=== PATIENT | female | born 1955 | race Caucasian/White ===

== ENCOUNTER 2024-09-23 09:09 | Inpatient (IN) ==
--- NOTE | 2024-09-06 15:42 | PAT Medication Instructions ---
Medication Instructions Date of Service September 06, 2024 Home Medications biotin 1 mg capsule 1 mg PO QPM calcium 166.6 mg-vit D2 4.15 mcg-magnesium 83.3 mg-vit C-K2-min tablet 1 tab PO BID cholecalciferol (vitamin D3) 125 mcg (5,000 unit) capsule 125 mcg PO BID mirtazapine 15 mg tablet 15 mg PO HS mv-mn-folic 200 mcg-vit K 15 mcg-lutein 5 mg-zeaxanthin 1 mg capsule (PreserVision AREDS 2 Plus Multivit) 1 cap PO BID pantoprazole 40 mg tablet,delayed release 40 mg PO QAM duloxetine 30 mg capsule,delayed release 60 mg PO QAM famotidine 20 mg tablet 20 mg PO BID fexofenadine 180 mg tablet ([facility]) 180 mg PO HS PRN albuterol sulfate 90 mcg/actuation breath activated powder inhaler 2 inh inhalation Q6H PRN bupropion HCl 150 mg 24 hr tablet, extended release 150 mg PO QAM fluticasone 250 mcg-salmeterol 50 mcg/dose blistr powdr for inhalation 1 inh inhalation BID gabapentin 600 mg tablet 600 mg PO BID ibuprofen 200 mg capsule 800 mg PO DAILY PRN lisinopril 10 mg tablet 10 mg PO QAM montelukast 10 mg tablet 10 mg PO QPM Sleepy Time Tea 1 dose PO HS cefuroxime axetil 500 mg tablet 500 mg PO BID multivitamin 1 tab PO QAM ASK your surgeon for instructions ibuprofen 200 mg capsule 800 mg PO DAILY PRN STOP taking 2 weeks before surgery (or as soon as possible if surgery is within 2 weeks) biotin 1 mg capsule 1 mg PO QPM mv-mn-folic 200 mcg-vit K 15 mcg-lutein 5 mg-zeaxanthin 1 mg capsule (PreserVision AREDS 2 Plus Multivit) 1 cap PO BID DO NOT take the morning of surgery calcium 166.6 mg-vit D2 4.15 mcg-magnesium 83.3 mg-vit C-K2-min tablet 1 tab PO BID cholecalciferol (vitamin D3) 125 mcg (5,000 unit) capsule 125 mcg PO BID lisinopril 10 mg tablet 10 mg PO QAM multivitamin 1 tab PO QAM Take morning of surgery With a small sip of water, OTHERWISE NOTHING TO EAT OR DRINK AFTER MIDNIGHT: pantoprazole 40 mg tablet,delayed release 40 mg PO QAM duloxetine 30 mg capsule,delayed release 60 mg PO QAM famotidine 20 mg tablet 20 mg PO BID albuterol sulfate 90 mcg/actuation breath activated powder inhaler 2 inh inhalation Q6H PRN(use if needed; please bring with you to hospital day of surgery if possible) bupropion HCl 150 mg 24 hr tablet, extended release 150 mg PO QAM fluticasone 250 mcg-salmeterol 50 mcg/dose blistr powdr for inhalation 1 inh inhalation BID gabapentin 600 mg tablet 600 mg PO BID cefuroxime axetil 500 mg tablet 500 mg PO BID Take evening before surgery calcium 166.6 mg-vit D2 4.15 mcg-magnesium 83.3 mg-vit C-K2-min tablet 1 tab PO BID cholecalciferol (vitamin D3) 125 mcg (5,000 unit) capsule 125 mcg PO BID mirtazapine 15 mg tablet 15 mg PO HS famotidine 20 mg tablet 20 mg PO BID fexofenadine 180 mg tablet ([facility]) 180 mg PO HS PRN(if needed) albuterol sulfate 90 mcg/actuation breath activated powder inhaler 2 inh inhalation Q6H PRN(if needed) fluticasone 250 mcg-salmeterol 50 mcg/dose blistr powdr for inhalation 1 inh inhalation BID gabapentin 600 mg tablet 600 mg PO BID montelukast 10 mg tablet 10 mg PO QPM Sleepy Time Tea 1 dose PO HS cefuroxime axetil 500 mg tablet 500 mg PO BID Other Notes If you have any questions please call us at [phone] or [phone] or [phone] or [phone]
--- NOTE | 2024-09-09 11:55 | Anesthesiology Consultation ---
Date of Service September 09, 2024 Assessment & Plan (1) Encounter for pre-operative examination: - Infectious disease screening: Per assessment on 09/09/24- No known recent infectious disease contacts. Dx sinus infection 09/05/24- Started Ceftin at that time (10 day prescription, to be completed prior to surgery). Patient states symptoms resolved except post residual, improving post nasal drip/clear drainage. DOS 09/23/24. Patient advised to contact surgeon/PAT if not at baseline prior to surgery. - Awaiting surgeon-ordered PCP ([facility], appt 09/13) and cardio ([facility], appt 09/15) preop evaluations. Patient otherwise acceptable risk for surgery. Chart Review Chart Review: Patient seen in Pre Admission Testing Teaching & Discussion Pre-Anesthesia Teaching/Discussion Notes: Instructed NPO after midnight before surgery,except medications with 15 cc of water. Medication instructions provided according to the PAT guidelines. History Surgery Operation Date: 09/23/24 11:05 Proposed Procedures p L4-S1 Decompression and Fusion Spinal Cord Monitoring - [place] Packer, Height/Weight Height: 5 ft 5 in Weight: 113.8 kg Allergies Allergy/AdvReac Type Severity Reaction Status Date / Time aspirin Allergy Intermediate Abdominal Verified 09/06/24 11:52 Pain bee venom protein (honey bee) Allergy Intermediate swelling Verified 09/06/24 11:52 metoprolol Allergy Intermediate bradycardia, Verified 09/06/24 11:52 fatigue neomycin Allergy Mild Rash Verified 09/06/24 11:52 Penicillins Allergy Mild Rash Verified 09/06/24 11:52 rofecoxib Allergy Mild Rash Verified 09/06/24 11:52 Sulfa (Sulfonamide Allergy Mild Rash Verified 09/06/24 11:52 Antibiotics) aripiprazole AdvReac Severe severe Verified 09/06/24 11:52 nightmares Medications Home Medications Medication Instructions Recorded Confirmed Last Taken biotin 1 mg capsule 1 mg PO QPM 08/04/23 09/06/24 Unknown calcium 166.6 mg-vit D2 4.15 1 tab PO BID 08/04/23 09/06/24 Unknown mcg-magnesium 83.3 mg-vit C-K2-min tablet cholecalciferol (vitamin D3) 125 125 mcg PO BID 08/04/23 09/06/24 Unknown mcg (5,000 unit) capsule mirtazapine 15 mg tablet 15 mg PO HS 08/04/23 09/06/24 Unknown mv-mn-folic 200 mcg-vit K 15 1 cap PO BID 08/04/23 09/06/24 Unknown mcg-lutein 5 mg-zeaxanthin 1 mg capsule (PreserVision AREDS 2 Plus Multivit) pantoprazole 40 mg tablet,delayed 40 mg PO QAM 08/04/23 09/06/24 Unknown release duloxetine 30 mg capsule,delayed 60 mg PO QAM 09/29/23 09/06/24 Unknown release famotidine 20 mg tablet 20 mg PO BID 09/29/23 09/06/24 Unknown fexofenadine 180 mg tablet 180 mg PO HS PRN Allergy Symptoms 09/29/23 09/06/24 Unknown ([facility]) albuterol sulfate 90 mcg/actuation 2 inh inhalation Q6H PRN Shortness 04/27/24 09/06/24 Unknown breath activated powder inhaler Of Breath bupropion HCl 150 mg 24 hr tablet, 150 mg PO QAM 04/27/24 09/06/24 Unknown extended release fluticasone 250 mcg-salmeterol 50 1 inh inhalation BID 04/27/24 09/06/24 Unknown mcg/dose blistr powdr for inhalation gabapentin 600 mg tablet 600 mg PO BID 04/27/24 09/06/24 Unknown ibuprofen 200 mg capsule 800 mg PO DAILY PRN Pain 04/27/24 09/06/24 Unknown lisinopril 10 mg tablet 10 mg PO QAM 04/27/24 09/06/24 Unknown montelukast 10 mg tablet 10 mg PO QPM 04/27/24 09/06/24 Unknown Sleepy Time Tea 1 dose PO HS 09/06/24 09/06/24 Unknown cefuroxime axetil 500 mg tablet 500 mg PO BID 09/06/24 09/06/24 Unknown multivitamin 1 tab PO QAM 09/06/24 09/06/24 Unknown Past Medical History Medical History Chronic back pain Dyslipidemia GERD (gastroesophageal reflux disease) History of atrial fibrillation No known recurrence since ablation 2020 per patient Follows with [facility] cardio History of kidney stones HTN (hypertension) Macular degeneration of both eyes Osteoarthritis Post traumatic stress disorder Sleep apnea CPAP (compliant) Exercise / Class Metabolic Activity III < 4 Walking/Shop/Light housework (uses cane) Past Family History Family History Mother Heart disease Hyperlipemia Breast cancer Thyroid disease Father Prostate cancer Colorectal cancer Brother Prostate cancer Diabetes Hypertension Asthma Grandmother (Maternal) Stroke Other No family history of adverse response to anesthesia Past Surgical History Surgical History History of arthroscopy of right knee History of benign breast biopsy History of bilateral cataract extraction (2016) History of cardiac radiofrequency ablation (RFA) 2020 (in [place]) History of section x3 History of cholecystectomy History of colonoscopy History of dilatation and curettage History of esophagogastroduodenoscopy (EGD) History of gynecologic surgery Ectopic History of surgical procedure on eye proper using laser Left History of tooth extraction History of wisdom tooth extraction Past Anesthesia History No Family Hx of Anesthesia Complications and Other * Patient needed to remain intubated after surgery- unknown reason/details with 1980s surgery. No issues with several subsequent surgeries/anesthesia History of PONV No Hx of PONV and Hx of Motion Sickness Social History Smoking Status: Never smoker Do You Dip or Chew Tobacco: No Hx Alcohol Use: Yes (very rarely) alcohol intake frequency: holidays/special occasions only Hx Substance Use: Yes substance use type: marijuana (Marijuana gummies HS for sleep aid (advised)) Review of Systems Patient denies chest pain, shortness of breath, fever, chills, cough, wheezing, palpitations. Physical Exam Vital Signs BP 127/81 P 67 TEMP 98.4 SP02 97%RA RESP 20 Physical Full cervical extension range of motion. Full TMJ range of motion. TMD 3 finger breaths Mallampati Score III Dentition: missing molars/side, + crowns Lungs: clear throughout to auscultation Cardiac: regular rate and rhythm, no murmurs noted Spine: normal Carotid arteries: negative bruit Extremities: no LE edema Thick neck Lab Results Anesthesia Preop Results Results Anesthesia Widget: WBC 5.72 K/ul (4.8-10.8) 09/09/24 Hgb 12.0 g/dl (12.0-16.0) 09/09/24 Hct 37.1 % (37.0-47.0) 09/09/24 Plt 319 K/uL (130-400) 09/09/24 Na 142 mmol/L (136-145) 09/09/24 K 3.9 mmol/L (3.5-5.1) 09/09/24 Cl 110 mmol/L (98-107) H 09/09/24 CO2 26 mmol/L (21-32) 09/09/24 BUN 13 mg/dl (6-23) 09/09/24 Creat 0.84 mg/dl (0.6-1.2) 09/09/24 Glucose Level 97 mg/dl (70-99(Fasting)) 09/09/24 PT 10.6 Seconds (9.0-12.0) 09/09/24 PTT 26 Seconds (21-31) 09/09/24 INR 1.0 (0.9-1.1) 09/09/24 Urine Color Yellow 09/09/24 Urine Appearance Clear (Clear) 09/09/24 Urine pH 7.0 (4.5-7.5) 09/09/24 Urine Specific Jarratt 1.018 (1.000-1.030) 09/09/24 Urine Protein Negative (Negative) 09/09/24 Urine Glucose (UA) Negative (Negative) 09/09/24 Urine Ketones Trace (Negative) H 09/09/24 Urine Blood Negative (Negative) 09/09/24 Urine Nitrite Negative (Negative) 09/09/24 Urine Bilirubin Negative (Negative) 09/09/24 Urine Urobilinogen Negative (Negative) 09/09/24 Urine Leukocyte Esterase 1+ (Negative) H 09/09/24 Urine WBC (Auto) 0-5 /hpf (0-5) 09/09/24 Urine RBC (Auto) 0-2 /hpf (0-2) 09/09/24 Urine Hyaline Casts (Auto) 0-2 /lpf (0-2) 09/09/24 Urine Epithelial Cells (Auto) 6-10 /hpf (0-2) H 09/09/24 Urine Bacteria (Auto) None Seen (None Seen) 09/09/24 Blood Type A Positive 09/09/24 Antibody Screen NEGATIVE 09/09/24 Testing Electrocardiogram Date: 09/09/24 SB at 58bpm. LAD. Chest X-Ray Date: 09/09/24 FINDINGS: No lines and tubes are seen. Calcified aortic knob is seen. The lungs are clear. No evidence of pleural effusion or pneumothorax. IMPRESSION: No acute chest disease. Echocardiogram Date: 11/13/23 EF 55-60%. Mild concentric LVH. LV wall motion is normal. Mild MR/TR. RVSP 30-40 mmHg. Mildly dilated ascending aorta. Stress Test Date: 06/14/21 Type: exercise "This study is normal." Stress echocardiogram is normal. No regional wall motion abnormalities noted post stress. Negative ECG response. No clear increase in PA systolic pressure from.
[~2024-09-23 09:09] MED LIST: DEXAMETHASONE SOD INJ 4 MG/ML VIAL ONE; GLYCOPYRROLATE 0.2 MG/ML VIAL ONE; LIDOCAINE 2% 2 ML VIAL/AMP(20MG/ML) INFIL ONE; MIDAZOLAM HCL 1 MG/ML 2ML VIAL ONE; ONDANSETRON INJ 2 MG/ML 2 ML VIAL ONE; PROPOFOL IV EMULSION 10 MG/ML 20 ML VIAL IV ONE; ROCURONIUM BROMIDE 10 MG/ML 5 ML VIAL IV ONE; SUGAMMADEX SODIUM 200 MG/2 ML VIAL IV ONE; fentaNYL citrate PF 100 MCG/2 ML VIAL ONE
[2024-09-23] MEDS ORDERED: ONDANSETRON INJ 2 MG/ML 2 ML VIAL IV PRN ×2 (09:22→16:02)
[2024-09-23] MEDS ORDERED: ePHEDrine sulfate 50 MG/ML AMP IV PRN (09:22)
[2024-09-23] MEDS ORDERED: ATROPINE SULFATE 0.1 MG/ML 10ML SYR IV PRN (09:22)
[2024-09-23] MEDS ORDERED: DEXAMETHASONE SOD INJ 4 MG/ML VIAL IV PRN (09:22)
--- NOTE | 2024-09-23 09:25 | Anesthesiology Consultation ---
Date of Service September 23, 2024 Assessment & Plan Chart Review Chart Review: Acceptable Risk for Surgery Consults Requested none ASA [id number] Proposed Anesthesia Anesthesia Type: General History Surgery Operation Date: 09/23/24 10:45 Proposed Procedures p L4-S1 Decompression and Fusion, Spinal Cord Monitoring - [place] Packer DO Height/Weight Height: 5 ft 5 in Weight: 113.8 kg Allergies Allergy/AdvReac Type Severity Reaction Status Date / Time aspirin Allergy Intermediate Abdominal Verified 09/23/24 09:29 Pain bee venom protein (honey bee) Allergy Intermediate swelling Verified 09/23/24 09:29 metoprolol Allergy Intermediate bradycardia, Verified 09/23/24 09:29 fatigue neomycin Allergy Mild Rash Verified 09/23/24 09:29 Penicillins Allergy Mild Rash Verified 09/23/24 09:29 rofecoxib Allergy Mild Rash Verified 09/23/24 09:29 Sulfa (Sulfonamide Allergy Mild Rash Verified 09/23/24 09:29 Antibiotics) aripiprazole AdvReac Severe severe Verified 09/23/24 09:29 nightmares Medications Home Medications Medication Instructions Recorded Confirmed Last Taken biotin 1 mg capsule 1 mg PO QPM 08/04/23 09/23/24 2 Weeks Ago ~09/09/24 calcium 166.6 mg-vit D2 4.15 1 tab PO BID 08/04/23 09/23/24 09/22/24 mcg-magnesium 83.3 mg-vit C-K2-min tablet cholecalciferol (vitamin D3) 125 125 mcg PO BID 08/04/23 09/23/24 09/22/24 mcg (5,000 unit) capsule mirtazapine 15 mg tablet 15 mg PO HS 08/04/23 09/23/24 09/22/24 mv-mn-folic 200 mcg-vit K 15 1 cap PO BID 08/04/23 09/23/24 09/21/24 mcg-lutein 5 mg-zeaxanthin 1 mg capsule (PreserVision AREDS 2 Plus Multivit) pantoprazole 40 mg tablet,delayed 40 mg PO QAM 08/04/23 09/23/24 09/22/24 release duloxetine 30 mg capsule,delayed 60 mg PO QAM 09/29/23 09/23/24 09/22/24 release famotidine 20 mg tablet 20 mg PO BID 09/29/23 09/23/24 09/22/24 fexofenadine 180 mg tablet 180 mg PO HS PRN Allergy Symptoms 09/29/23 09/23/24 09/22/24 ([facility]) albuterol sulfate 90 mcg/actuation 2 inh inhalation Q6H PRN Shortness 04/27/24 09/23/24 09/23/24 08:00 breath activated powder inhaler Of Breath bupropion HCl 150 mg 24 hr tablet, 150 mg PO QAM 04/27/24 09/23/24 09/22/24 extended release fluticasone 250 mcg-salmeterol 50 1 inh inhalation BID 04/27/24 09/23/24 09/23/24 08:00 mcg/dose blistr powdr for inhalation gabapentin 600 mg tablet 600 mg PO BID 04/27/24 09/23/24 09/22/24 ibuprofen 200 mg capsule 800 mg PO DAILY PRN Pain 04/27/24 09/23/24 1 Week Ago ~09/16/24 lisinopril 10 mg tablet 10 mg PO QAM 04/27/24 09/23/24 09/22/24 montelukast 10 mg tablet 10 mg PO QPM 04/27/24 09/23/24 09/22/24 Sleepy Time Tea 1 dose PO HS 09/06/24 09/23/24 09/21/24 multivitamin 1 tab PO QAM 09/06/24 09/23/24 2 Weeks Ago ~09/09/24 Active Medications Generic Name Dose Route Start Last Admin Trade Name Freq PRN Reason Stop Dose Admin Acetaminophen 1,000 mg 09/23/24 06:00 09/23/24 09:56 Acetaminophen 500 Mg Tab PO 09/23/24 18:00 1,000 mg PREOP EM Administration Celecoxib 200 mg 09/23/24 06:00 09/23/24 09:56 Celebrex 200 Mg Cap PO 09/23/24 18:00 200 mg PREOP EM Administration Gabapentin 300 mg 09/23/24 06:00 09/23/24 09:58 Gabapentin 300 Mg Cap PO 09/23/24 18:00 300 mg PREOP EM Administration Lactated Ringer's 1,000 mls @ 60 mls/hr 09/23/24 06:00 09/23/24 09:39 Lr IV 09/23/24 22:39 Not Given .[id number] EM Lactated Ringer's 1,000 mls @ 15 mls/hr 09/23/24 06:00 09/23/24 09:40 Lr IV 09/24/24 05:59 0 mls/hr .Q24H EM Infusion NPO Last Intake of Solids Comment: NPO past MN Past Medical History Medical History HTN (hypertension) GERD (gastroesophageal reflux disease) Osteoarthritis Chronic back pain History of kidney stones Macular degeneration of both eyes Post traumatic stress disorder History of atrial fibrillation No known recurrence since ablation 2020 per patient Follows with [facility] Sleep apnea CPAP (compliant) Dyslipidemia Exercise / Class Metabolic Activity II 4-5 Yardwork/Stairs/Walk up hill Past Family History Family History Mother Heart disease Hyperlipemia Breast cancer Thyroid disease Father Prostate cancer Colorectal cancer Brother Prostate cancer Diabetes Hypertension Asthma Grandmother (Maternal) Stroke Other No family history of adverse response to anesthesia Past Surgical History Surgical History History of gynecologic surgery Ectopic History of section x3 History of benign breast biopsy History of dilatation and curettage History of arthroscopy of right knee History of esophagogastroduodenoscopy (EGD) History of colonoscopy History of cholecystectomy History of tooth extraction History of wisdom tooth extraction History of surgical procedure on eye proper using laser Left History of bilateral cataract extraction (2016) History of cardiac radiofrequency ablation (RFA) 2020 (in [place]) Past Anesthesia History No Hx of Anesthesia Complications * Patient needed to remain intubated after surgery- unknown reason/details with 1980s surgery. No issues with several subsequent surgeries/anesthesia History of PONV No Hx of PONV Social History Smoking Status: Never smoker Do You Dip or Chew Tobacco: No Hx Alcohol Use: Yes (very rarely) alcohol intake frequency: holidays/special occasions only Hx Substance Use: Yes substance use type: marijuana (Marijuana gummies HS for sleep aid (advised)) Review of Systems ROS Unobtainable: All systems reviewed & are unremarkable except as noted in HPI & below Physical Exam Vital Signs Last Vital Signs Temp 37.0 C 09/23/24 09:40 Pulse 64 09/23/24 09:40 Resp 18 09/23/24 09:40 BP 135/91 09/23/24 09:40 Pulse Ox 94 09/23/24 09:40 O2 Del Method Room Air 09/23/24 09:40 Constitutional no acute distress chronic back pain ENMT Thyromental Distance: > or= 3.5 Finger Breadths Mallampati Class: II Neck + thick neck Respiratory normal respiratory effort Auscultation: lungs clear to auscultation bilaterally Cardiovascular Rate/Rhythm: regular rate Neurologic moves all extremities Testing Electrocardiogram Date: 09/09/24 SB at 58bpm. LAD. Chest X-Ray Date: 09/09/24 FINDINGS: No lines and tubes are seen. Calcified aortic knob is seen. The lungs are clear. No evidence of pleural effusion or pneumothorax. IMPRESSION: No acute chest disease. Echocardiogram Date: 11/13/23 EF 55-60%. Mild concentric LVH. LV wall motion is normal. Mild MR/TR. RVSP 30-40 mmHg. Mildly dilated ascending aorta. Stress Test Date: 06/14/21 Type: exercise "This study is normal." Stress echocardiogram is normal. No regional wall motion abnormalities noted post stress. Negative ECG response. No clear increase in PA systolic pressure from.
[2024-09-23] MEDS: LR 60ML/HR IV SCH (09:39)
[2024-09-23] MEDS: LACTATED RINGER'S 1,000 ML IV SCH (09:39)
[2024-09-23] MEDS: ACETAMINOPHEN 500 MG TAB PO SCH (09:56)
[2024-09-23] MEDS: CeleBREX 200 MG CAP PO SCH (09:56)
[2024-09-23] MEDS: GABAPENTIN 300 MG CAP PO SCH (09:58)
--- NOTE | 2024-09-23 10:58 | History & Physical Bridge Note ---
Date of Service September 23, 2024 History & Physical Bridge Note I have examined the patient, reviewed the History & Physical and in the interval since the performance of the History & Physical I have noted the following changes of clinical significance: no changes noted
--- OUTSIDE RECORDS SUMMARY | 2024-09-23 10:58 | External Medical Summary | Summary of Care ---
Author Name Unknown Organization [facility] Address [address] [facility] [place] [address] Phone [phone] Care Team Providers Care Water Chemist Name Role Phone Eric Brooks DO Primary Care Provider [phone] Reason for Visit * Reason Comments Physical-Exam Pre-op for back Sep 23 Encounter Details Date Type Department Care Team (Latest Contact Info) Description 09/13/2024 1:40 PM EST Office Visit Family Practice [address] [facility] [place] [address] [place] [phone] Eric Brooks DO [address] [place] [id number] Preop examination*; Degeneration of intervertebral disc of lumbar region with discogenic back pain and lower extremity pain; Spinal stenosis of lumbar region with neurogenic claudication; HTN, goal below 140/90; Coronary artery disease involving kashia coronary artery of kashia heart without angina pectoris; Paroxysmal A-fib (HCC); ELLA on CPAP; Mild intermittent asthma without complication Allergies Active Allergy Reactions Criticality Noted Date Comments Aripiprazole 01/27/2022 Other reaction(s): Other (See Comments) orthostasis Aspirin Abdominal pain Medium 08/21/2021 The patient tolerates Toradol Bee Venom Hives 01/22/2016 Other reaction(s): unknown Gluten Meal 12/03/2017 Other reaction(s): gi distress Pregabalin Neuro complications (Please comment) 08/07/2023 nightmares Metoprolol Other (Please comment) Medium 12/08/2023 Drops heart rate Neomycin Rash 04/25/1999 Other reaction(s): Other Penicillins Rash 04/25/1999 Rofecoxib Rash Low 08/21/2021 The patient tolerates Toradol Sulfa Antibiotics 04/11/2003 documented as of this encounter (statuses as of 09/17/2024) Medications Cholecalciferol 125 MCG (5000 UT) Oral Capsule Take 1 Capsule by mouth in the morning. Active PreserVision AREDS 2+Multi Vit Oral Capsule Take 1 Capsule by mouth in the morning and 1 Capsule before bedtime. Active Calcium-Magnesium 166.67-83.33 MG Oral Tablet Take 1 Tablet by mouth in the morning and 1 Tablet before bedtime. Active CPAP 8 cm every night at bedtime. Active Famotidine 20 MG Oral Tablet (Pepcid)Indicatio ns:Gastroesophage al reflux disease with esophagitis without hemorrhage Take 1 Tablet by mouth in the morning and 1 Tablet before bedtime. 180 Tablet 3 05/02/2024 10:11 AM EDT 3 Active Fexofenadine HCl 180 MG Oral Tablet (Ariane) 1 Tablet every night at bedtime. 4 Active Womens Multi Oral Capsule Take by mouth daily. Active Montelukast Sodium 10 MG Oral Tablet (Singulair)Indica tions:Seasonal allergic rhinitis due to pollen,Mild intermittent asthma without complication Take 1 Tablet by mouth in the morning. 90 Tablet 3 09/08/2024 10:17 AM EST 4 Active Albuterol Sulfate HFA 108 (90 Base) MCG/ACT Inhalation Aerosol SolutionIndicatio ns:Mild intermittent asthma without complication Inhale 2 Puffs by mouth every 6 hours as needed for Cough, Shortness of Breath or Wheezing. 54 g 3 4 Active EpiPen 2-Victorino 0.3 MG/0.3ML Injection Solution Auto-injectorIndi cations:Angioedem a, initial encounter For a severe reaction: Place orange end against the outer thigh, press firmly, hold in place for 10 seconds and go to the Emergency room. 1 Each 2 01/18/2024 10:45 AM EDT 4 Active DULoxetine HCl 60 MG Oral Capsule Delayed Release Particles (Cymbalta)Indicat ions:Moderate episode of recurrent major depressive disorder (HCC) Take 1 Capsule by mouth in the morning 90 Capsule 3 08/16/2024 12:04 PM EST 4 Active Mirtazapine 15 MG Oral Tablet (Remeron)Indicati ons:Moderate episode of recurrent major depressive disorder (HCC) Take 1 Tablet by mouth at bedtime 90 Tablet 3 08/16/2024 12:04 PM EST 4 Active Pantoprazole Sodium 40 MG Oral Tablet Delayed Release (Protonix)Indicat ions:Gastroesopha geal reflux disease without esophagitis Take 1 Tablet by mouth in the morning. 90 Tablet 3 08/16/2024 12:04 PM EST 4 Active Lisinopril 10 MG Oral Tablet (Prinivil)Indicat ions:HTN, goal below 140/90 Take 1 Tablet by mouth in the morning. 90 Tablet 3 09/07/2024 8:16 AM EST 4 Active Fluticasone-Salme terol 250-50 MCG/ACT Inhalation Aerosol Powder Breath Activated (Advair Diskus)Indication s:Mild intermittent asthma, uncomplicated Inhale 1 Puff by mouth in the morning and 1 Puff before bedtime. 180 Each 3 09/14/2024 10:03 AM EST 4 Active buPROPion HCl ER (XL) 150 MG Oral Tablet Extended Release 24 Hour (Wellbutrin XL)Indications:Mo derate episode of recurrent major depressive disorder (HCC) Take 1 Tablet by mouth in the morning. 90 Tablet 3 07/13/2024 2:19 PM EDT 4 Active Gabapentin 600 MG Oral Tablet (Neurontin)Indica tions:Spinal stenosis of lumbar region with neurogenic claudication,Lumb ar radiculopathy, right Take 1 tablet by mouth twice daily 180 Tablet 3 06/24/2024 7:22 AM EDT 4 Active Sucralfate 1 GM Oral Tablet (Carafate)Indicat ions:Gastroesopha geal reflux disease without esophagitis Take 1 Tablet by mouth in the morning and 1 Tablet before bedtime. half an hour before meals and at bedtime. 120 Tablet 06/23/2024 10:55 AM EDT 4 Active Additional Information Patient not taking.Reported on 09/13/2024 Ezetimibe 10 MG Oral Tablet (Zetia)Indication s:Dyslipidemia, goal LDL below 70 Take 1 Tablet by mouth in the morning. 90 Tablet 3 07/28/2024 8:16 AM EDT 4 Active Cefuroxime Axetil 500 MG Oral Tablet (Ceftin)Indicatio ns:Acute non-recurrent maxillary sinusitis Take 1 Tablet by mouth in the morning and 1 Tablet before bedtime. 20 Tablet 4 Active Hospital, Clinic, or Other Facility Administered Medication Ordered Dose Route Frequency Start Date End Date Status Albuterol Sulfate (Proventil) (5 MG/ML) 0.5% *conc* inhalation solution 2.5 mgIndications:Wheezing 2.5 mg NEBULIZER PRN 06/07/2024 06/07/2025 Ac tive documented as of this encounter (statuses as of 09/17/2024) Active Problems Problem Noted Date Diagnosed Date Mastoiditis of left side 02/25/2024 Torticollis 02/25/2024 Tick bite of back wall of thorax 02/25/2024 DDD (degenerative disc disease), cervical 2023 HTN, goal below 140/90 02/17/2024 Dehydration 02/17/2024 Oropharyngeal candidiasis 02/17/2024 Fall at home, initial encounter 02/17/2024 Contusion of scalp 02/17/2024 Viral meningitis 02/15/2024 Bronchitis, complicated 02/15/2024 Elevated liver enzymes 02/15/2024 Lumbar radiculopathy, right 12/16/2023 Mild intermittent asthma, uncomplicated 11/18/19 24 Spinal stenosis of lumbar re gion with neurogenic claudication 11/18/2023 Claudication of right lower extremity 11/18/2023 Endometrial polyp 11/18/2023 Mild intermittent asthma without complication Status post laparoscopic cholecystectomy 023 Thickened endometrium 09/14/2023 Coronary artery disease invo lving kashia coronary artery of kashia heart without angina pectoris 08/07/2023 Sick sinus syndrome 08/07/2023 Dyslipidemia, goal LDL below 70 08/07/2023 Lumbar degenerative disc disease 08/07/2023 Primary osteoarthritis of both knees 08/07/2023 Gastroesophageal reflux dise ase with esophagitis without hemorrhage 08/07/2023 OAB (overactive bladder) 08/07/2023 Class 2 severe obesity due t o excess calories with serious comorbidity and body mass index (BMI) of 39.0 to 39.9 in adult 08/07/2023 Rotator cuff tendonitis, left 08/07/2023 Paroxysmal A-fib 01/20/2023 History of radiofrequency ab lation (RFA) procedure for cardiac arrhythmia 01/20/2023 Mixed dyslipidemia 01/20/2023 IFG (impaired fasting glucose) 01/20/2023 Gastroesophageal reflux disease without esophagi tis 01/20/2023 Vitamin D deficiency 01/20/2023 ELLA on CPAP 01/20/2023 Moderate episode of recurrent major depressive d isorder 01/20/2023 Chronic insomnia 01/20/2023 History of colonoscopy with polypectomy 01/21/20 23 Overview (01/20/2023): 09/18 Encounter for screening mammogram for breast can cer 01/20/2023 History of abnormal cervical Pap smear 3 Overview (01/20/2023): 2017--3 pap nml per pt Adhesive capsulitis of left shoulder 01/20/2023 documented as of this encounter (statuses as of 09/17/2024) Resolved Problems Problem Noted Date Diagnosed Date Resolved Date Acute calculous cholecystitis 08/10/2023 03/21/2024 Body mass index (BMI) of 40. 0 to 44.9 in adult 07/06/2023 08/07/2023 Overview: Per Obesity protocol Abnormal mammogram 05/04/2003 3 DIFFUS CYSTIC MASTOPATHY 05/04/2003 documented as of this encounter (statuses as of 09/17/2024) Immunizations Name Administration Dates Next Due COVID-19 mRNA, LNP-s, No Pre serve, 2-Dose Series (Moderna) 11/21/2020,10/24/2020 COVID-19 mRNA, LNP-s, No Pre serve, 2-Dose Series ([employer]) 08/06/2021 Pneumococcal Conjugate Vacc, 13 Valent (Prevnar) 06/08/2019 Pneumococcal Polysaccharide PPV23 (Pneumovax) 02/25/2022,11/20/2016 Seasonal Influenza Vac., MDV , IM, 0.5 mL (Fluzone) 08/02/2018,06/28/2015,07/11/2013,07/29 Seasonal Influenza, High Dos e, Trivalent, PF, IM (Fluzone HD) 06/23/2024,08/13/2022,07/20/2019 Seasonal Influenza, PF, 6 M & above, IM , (FluLaval or Fluzone) 08/02/2018 Seasonal Influenza, QUAD, wi th Preserv, 6 mons & Above, 0.5 mL, IM 08/02/2018,07/11/2013,07/29/2012 Seasonal Influenza, Quadriva lent Hd (Fluzone Hd) 07/07/2023 Seasonal Influenza, Recombin ant, RIV4, PF, (Flublock) 07/09/2020 TDAP (age 10 and older)(Boostrix) 11/18/2023 Zoster Vaccine Recombinant (Shingrix) 11/18/2023 ,08/07/2023 documented as of this encounter Social History Tobacco Use Types Packs/Day Years Used Date Smoking Tobacco: Never Smokeless Tobacco: Never Tobacco Cessation:Counseling Given: Yes Alcohol Use Standard Drinks/Week Comments Yes 0 (1 standard drink = 0.6 oz pur e alcohol) occ PHQ-2 Answer Date Recorded PHQ Adult Total Score 0 07/12/2024 Hunger Vital Sign Answer Date Recorded Within the past 12 months, y ou worried that your food would run out before you got the money to buy more. Never true 03/15/20 24 Within the past 12 months, t he food you bought just didn't last and you didn't have money to get more. Never true 03/15/2024 Childcare Answer Date Recorded Do you feel overwhelmed with taking care of a child, family member or friend? No 03/15/2024 Does your family need help f inding childcare? (Household - for ages 0-17 years) Not on file 03/15/2024 Clothing Answer Date Recorded Have you been unable to get clothing when it was really needed? No 03/15/2024 Is your family able to get c lothes or diapers when needed? (Household - for ages 0-17 years) Not on file 03/15/2024 Personal Safety Answer Date Recorded Do you feel unsafe or have concerns for your saf ety? No 03/15/2024 Do you have concerns for you r family's safety? (Household - for ages 0-17 years) Not on file 03/15/2024 Utilities Answer Date Recorded Do you have trouble paying y our heating, water, or electric bill? No 03/15/2024 Is your family able to pay t he heat, water, or electric bill? (Household - for ages 0-17 years) Not on file 03/15/2024 Does your family have access to good internet? (Household - for ages 0-17 years) Not on file 03/15/2024 Employment Status Answer Date Recorded Are you unemployed or without regular income? No 03/15/2024 Does the household have a re gular source of income? (Household - for ages 0-17 years) Not on file 03/15/2024 Social Connections Answer Date Recorded How often do you feel lonely or isolated from th ose around you? Never 03/15/2024 Financial Resource Strain Answer Date R ecorded Do you have any trouble payi ng for your medications, or do you think you might in the future? No 03/15/2024 Does your family have troubl e paying for medicine? (Household - for ages 0-17 years) Not on file 03/15/2024 Transportation Needs Answer Date Record ed READ ONLY Do you have troubl e getting a ride to medical visits or work? Never True 03/15/2024 Does your family have a hard time getting a ride to doctors visits? (Household - for ages 0-17 years) Not on file 03/15/2024 Has lack of transportation k ept you from medical appointments, meetings, work, or from getting things needed for daily living? Check all that apply. No 03/15/2024 Do you (or your family) have trouble finding or paying for a ride (transportation)? (Household - for ages 0-17 years) Not on file 03/15/2024 Housing Stability Answer Date Recorded Do you currently live in a s helter or have no steady place to sleep at night? No 03/15/2024 READ ONLY Do you think you a re at risk of becoming homeless? No 03/15/2024 Does your family worry about paying for your home or becoming homeless? (Household - for ages 0-17 years) Not on file 0 03/15/2024 Are you homeless or worried that you might be in the future? No 03/15/2024 Are you (or your family) devora eless or worried that you might be in the future? (Household - for ages 0-17 years) Not on file Food Insecurity Answer Date Recorded Do you need food for this week? No 03/15/2024 Are you able to get enough f ood for your family? (Household - for ages 0-17 years) Not on file 03/15/2024 Does your family need food t his week? (Household - for ages 0-17 years) Not on file 03/15/2024 Do you always have enough fo od for your family? 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 Answer Date of Assessment Author No 08/09/2023 10:34 PM EST Rachel Betts RN * Are you blind or do you have serious difficulty seeing, even when wearing glasses? Answer Date of Assessment Author No 08/09/2023 10:34 PM Rachel Das RN * Do you have serious difficulty walking or climbing stairs? (5 years old or older) Answer Date of Assessment Author No 08/09/2023 10:34 PM Rachel Das RN * Do you have difficulty dressing or bathing? (5 years old or older) Answer Date of Assessment Author No 08/09/2023 10:34 PM Rachel Das RN * Because of a physical, mental, or emotional condition, do you have difficulty doing errands alone such as visiting a doctors office or shopping? (15 years old or older) Answer Date of Assessment Author No 08/09/2023 10:34 PM Rachel Das RN documented as of this encounter Mental Status * Because of a physical, mental, or emotional condition, do you have serious difficulty concentrating, remembering, or making decisions? (5 years old or older) Answer Entry Date Author No 08/09/2023 10:34 PM Rachel Das RN documented in this encounter Progress Notes * Eric Brooks, - 09/13/2024 2:16 PM EST Images from the original note were not included. Pre-Operative Medical Evaluation Procedure Information Type of Surgery: lumbar decompression L4-5, L5-S1 Referring Physician / Surgeon: Dr. Packer Date of procedure: 09/23/24 Brief History of Present Illness: Patient is a 69-year-old female here for preop medical clearance. Patient has a history of hypertension, coronary disease, paroxysmal atrial fibrillation status post ablation, ELLA on CPAP, asthma, lumbar degenerative disc disease and lumbar spinal stenosis. Patient complains of chronic low back pain with pain radiating into right leg. Patient denies bowel or bladder dysfunction.Patient denies fati maurisio fever chills or sweats. Patient denies nasal congestion sore throat or earache. Patient denies cough or sputum. Patient is compliant with CPAP and is tolerating well. Patient denies chest pain shortness breath palpitations or edema. Patient denies abdominal pain nausea vomiting diarrhea constipation. Patient denies urinary frequency dysuria urgency or hematuria. Patient denies headache dizziness . Patient denies skin rash or lesions. Review systems otherwise negative Medical History Problem List: Mastoiditis of left side (02/25/2024) Torticollis (02/25/2024) Tick bite of back wall of thorax (02/25/2024) DDD (degenerative disc disease), cervical (02/18/2024) HTN, goal below 140/90 (02/17/2024) Dehydration (02/17/2024) Oropharyngeal candidiasis (02/17/2024) Fall at home, initial encounter (02/17/2024) Contusion of scalp (02/17/2024) Viral meningitis (02/15/2024) Bronchitis, complicated (02/15/2024) Elevated liver enzymes (02/15/2024) Lumbar radiculopathy, right (12/16/2023) Mild intermittent asthma, uncomplicated (11/18/2023) Spinal stenosis of lumbar region with neurogenic claudication (2023) Claudication of right lower extremity (HCC) (11/18/2023) Endometrial polyp (11/18/2023) Mild intermittent asthma without complication (10/12/2023) Status post laparoscopic cholecystectomy (09/14/2023) Thickened endometrium (09/14/2023) Acute calculous cholecystitis (08/10/2023) Coronary artery disease involving kashia coronary artery of kashia heart without angina pectoris (08/07/2023) Sick sinus syndrome (HCC) (08/07/2023) Dyslipidemia, goal LDL below 70 (08/07/2023) Lumbar degenerative disc disease (08/07/2023) Primary osteoarthritis of both knees (08/07/2023) Gastroesophageal reflux disease with esophagitis without hemorrhage (08/07/2023) OAB (overactive bladder) (08/07/2023) Class 2 severe obesity due to excess calories with serious comorbidity and body mass index (BMI) of 39.0 to 39.9 in adult ([facility]) (08/07/2023) Rotator cuff tendonitis, left (08/07/2023) Body mass index (BMI) of 40.0 to 44.9 in adult ([facility]) (07/06/2023) Paroxysmal A-fib ([facility]) (01/20/2023) History of radiofrequency ablation (RFA) procedure for cardiac arrhythmia (01/20/2023) Mixed dyslipidemia (01/20/2023) IFG (impaired fasting glucose) (01/20/2023) Gastroesophageal reflux disease without esophagitis (01/20/2023) Vitamin D deficiency (01/20/2023) ELLA on CPAP (01/20/2023) Moderate episode of recurrent major depressive disorder (HCC) (2022) Chronic insomnia (01/20/2023) History of colonoscopy with polypectomy (01/20/2023) Encounter for screening mammogram for breast cancer (01/20/2023) History of abnormal cervical Pap smear (01/20/2023) Adhesive capsulitis of left shoulder (01/20/2023) Abnormal mammogram (05/04/2003) DIFFUS CYSTIC MASTOPATHY (05/04/2003) Current Medications Cefuroxime Axetil 500 MG Oral Tablet (Ceftin), 500 mg, Oral, BID(AM/PM) Ezetimibe 10 MG Oral Tablet (Zetia), 10 mg, Oral, Daily(AM) Gabapentin 600 MG Oral Tablet (Neurontin), Take 1 tablet by mouth twice daily buPROPion HCl ER (XL) 150 MG Oral Tablet Extended Release 24 Hour (Wellbutrin XL), 150 mg, Oral, Daily(AM) Fluticasone-Salmeterol 250-50 MCG/ACT Inhalation Aerosol Powder Breath Activated (Advair Diskus), 1Puff, Inhalation, BID(AM/PM) Lisinopril 10 MG Oral Tablet (Prinivil), 10 mg, Oral, Daily(AM) DULoxetine HCl 60 MG Oral Capsule Delayed Release Particles (Cymbalta), 60 mg, Oral, Daily(AM) Mirtazapine 15 MG Oral Tablet (Remeron), 15 mg, Oral, HS Pantoprazole Sodium 40 MG Oral Tablet Delayed Release (Protonix), 40 mg, Oral, Daily(AM) Albuterol Sulfate HFA 108 (90 Base) MCG/ACT Inhalation Aerosol Solution, 2 Puff, Inhalation, Q6H PRN Montelukast Sodium 10 MG Oral Tablet (Singulair), 10 mg, Oral, Daily(AM) Fexofenadine HCl 180 MG Oral Tablet (Ariane), 180 mg, QHS Womens Multi Oral Capsule, Take by mouth daily. Famotidine 20 MG Oral Tablet (Pepcid), 20 mg, Oral, BID(AM/PM) CPAP, 8 cm, QHS Calcium-Magnesium 166.67-83.33 MG Oral Tablet, 1 Tablet, Oral, BID(AM/PM) Cholecalciferol 125 MCG (5000 UT) Oral Capsule, 5,000 Units, Oral, Daily(AM) PreserVision AREDS 2+Multi Vit Oral Capsule, 1 Capsule, Oral, BID(AM/PM) Sucralfate 1 GM Oral Tablet (Carafate), 1 g, Oral, BID(AM/PM) (Patient not taking: Reported on 09/13/2024) EpiPen 2-Victorino 0.3 MG/0.3ML Injection Solution Auto-injector, For a severe reaction: Place orange endagainst the outer thigh, press firmly, hold in place for 10 seconds and go to the Emergency room. Albuterol Sulfate (Proventil) (5 MG/ML) 0.5% *conc* inhalation solution 2.5 mg, 2.5 mg Allergies: Aspirin, Metoprolol, Aripiprazole, Bee venom, Gluten meal, Lyrica [pregabalin], Neomycin, Penicillins, Sulfa antibiotics, and Rofecoxib Past Medical History: has a past medical history of A-fib ([facility]), Acid reflux, Acute calculous cholecystitis (08/10/2023),Allergic disorder, Asthma, Congestive cardiac failure ([facility]), COVID-19 (10/12/2023), Dysfunction of eustachian tube (07/06/2007), Hyperlipidemia, INFORMATION (1995,1998), Insomnia, unspecified, Motionsickness, Obesity, BMI not known, ELLA on CPAP, Osteopenia after menopause (12/2020), and Otitis media (07/06/2007). Past Surgical History: has a past surgical history that includes treat ectopic /laparoscopy (09/28/1994); knee arthroscopy/meniscectomy (09/28/1995); dental surgery procedure nec (09/28/1976); delivery (82,83,88); MAMMOGRAM - BILATERAL; MAMMOGRAM - BILATERAL (11/13/2004); breast lesion,other,excision (Bilateral); laparoscopy; cholecystectomy (N/A, 08/10/2023); information (2021); information (Bilateral, 2015); Hysteroscopy w/Biopsy and/or Polypectomy w/wo D&C (N/A, 12/08/2023); Inject Dx/Ther Substance Interlaminar Lumbar/Sacral W Image Guide (N/A, 03/21/2024); Lumbar / Sacral Epidural, single level (Right, 05/19/2024); Lumbar / Sacral Epidural, add'l level (Right, 05/19/2024); and EGD, Flexible, Diagnostic (08/23/2024). Social History: reports that she has never smoked. She has never used smokeless tobacco. She reports current alcohol use. She reports current drug use. Drug: Marijuana. Family History: family history includes Allergies in her brother, daughter, and mother; Arthritis in her aunt (unspecified); Asthma in her brother; Breast Cancer (age of onset: 70) in her mother; Cancer in her uncle(unspecified); Cataracts in her father and mother; Colon cancer in her father; Crohn's disease in her daughter; Diabetes in her aunt (unspecified), brother, daughter, and daughter; Heart disease in her mother; Hyperlipidemia in her mother; Hypertension in her brother; Musculo-skeletal Disorder in her aunt (unspecified); Osteoporosis in her mother; Prostate cancer in her brother, brother, and father; Stroke in her grandmother (maternal) and uncle (unspecified); Thyroid Disorder in her aunt (unspecified) and mother. Anesthesia History Type of Anesthesia: General Endotracheal and Caudal block Anesthesia reaction: No History of surgical complications: none Personal history of venous thromboembolic disease: none Physical Exam Vitals: 09/13/24 1345 Temp: 97.5 F (36.4 C) Pulse: 66 SpO2: 96% BP: 118/70 BP 118/70 (BP Site: Left Arm, BP Position: Sitting, BP Cuff Size: Regular) | Pulse 66 | Temp 97.5 F (36.4 C) (Tympanic) | Wt 246 lb 9.6 oz (111.9 kg) | LMP 06/06/2004 | SpO2 96% | BMI 35.40 kg/m | BSA 2.35 m General: alert, healthy, and no distress Head: Normocephalic, No masses, lesions, tenderness or abnormalities Eye Exam: PERRLA, extraocular movements intact, conjunctiva are pink and non- injected, sclera clear Ears: External ears normal, Canals clear, TM's Normal Nose: no mucosal erythema, no mucosal edema, no purulent discharge Oropharynx: no exudate, no erythema, lips, buccal mucosa, and tongue normal, and mucous membranes are moist Neck: supple, no adenopathy, no bruits, thyroid normal size, non-tender, without nodularity Lymph: no palpable lymphadenopathy Heart: regular rate & rhythm, no murmur, and no gallops Lungs: chest symmetric with normal AP diameter, no chest deformities noted, no chest wall tenderness, lungs clear to auscultation Pulses: carotid=2/4 w/o bruits Abdomen: abdomen soft, non-tender, normal bowel sounds, and no masses or organomegaly Back: back symmetric, no curvature, no costovertebral angle tenderness, lumbar paravertebral musclespasm and tenderness decreased range of motion lumbar flexion L1-L5 Extremities: less than 2 second capillary refill, no joint deformities, effusion, or inflammation Neuro Exam: alert & oriented x 3 with fluent speech, no focal motor/sensory deficits, gait normal, decreased DTR 0/4 bilateral patella and Achilles Skin: skin color, texture, turgor are normal, no rashes or significant lesions Labs reviewed and are significant for: CBC, CMP, lipid panel EKG by my review is significant for: EKG on 08/09/2023 normal sinus rhythm, left axis deviation, Surgical Risk Scoring Revised Cardiac Risk Index (RCRI) High-risk type of surgery (examples include vascular and any open intraperitoneal or intrathoracic procedures): 0=No History of ischemic heart disease (history of myocardial infarction or positive exercise test, current compliant of chest pain considered to be secondary to myocardia ischemia, use of nitrate therapy, or ECG with pathological Q waves; do not count prior coronary revascularization procedure unless one of the other criteria for ischemic heart disease is present): 0=No History of heart failure: 0=No History of cerebrovascular disease: 0=No Diabetes mellitus requiring treatment with insulin: 0=No Preoperative serum creatinine >2.0 mg/dL (177 micromol/L): 0=No Pt has revised cardiac index score of: No Risk Factors- 0.4% (95% CI: 0.1-0.8) Screening for Obstructive Sleep Apnea (STOP-BANG) Do you Snore loudly? 0=No Do you often feel Tired, Fatigued, or Sleep? 0=No Has anyone Observed you Stop Breathing or Choking/Gasping during sleep? 1=Yes Do you have or are you being treated for High Blood Pressure? 1=Yes BMI over 35? 1=Yes Age older than 50? 1=Yes Neck size large? (For males - 17 inches or larger, For females - 16 inches or larger) 0=No Male? 0=No Score 0-2:low risk ELLA, 3-4: intermediate risk of ELLA, 5-8: high risk ELLA 4 Assessment and Plan Preop examination Patient medically stable for planned procedure Degeneration of intervertebral disc of lumbar region with discogenic back pain and lower extremity pain Follow with orthopedic spine surgeon Continue present medication Gabapentin 600 mg 1 tab twice daily Spinal stenosis of lumbar region with neurogenic claudication Follow with orthopedic spine surgeon Continue present medication Gabapentin 600 mg 1 tab twice daily HTN, goal below 140/90 Stable Blood pressure at goal. Continue present medication Lisinopril 10 mg 1 tab once daily Coronary artery disease involving kashia coronary artery of kashia heart without angina pectoris Stable Continue present medication Zetia 10 mg 1 tab once daily Lisinopril 10 mg 1 tab once daily Paroxysmal A-fib (HCC) Stable status post ablation ELLA on CPAP Stable Continue CPAP Mild intermittent asthma without complication Stable Continue present medication Advair 250-50 inhale 1 puff twice daily Albuterol HFA 2 puffs Q 4-6 hours p.r.n. Functional Assessment They are able to walk up a flight of stairs, walk two blocks at a moderate pace, do heavy house work like vacuuming, and grocery shop. The patient's functional status is adequate (equal to 4 METS). 1 MET: 4 METs: 4-10 METs: Can take care of self, such as eat, dress or use the toilet. Can walk to block or go up a flight of steps. Can do heavy house work. Surgical Risk Assessment Patient is low medical risk for the listed procedure. Medication adjustments: none Additional consults or testing: none * Sofía Mejía LPN - 09/13/2024 1:51 PM EST Patient has been verbally educated on the need or importance of COVID and has declined topic(s). documented in this encounter Plan of Treatment Upcoming Encounters Date Type Department Care Team (Late st Contact Info) Description 10/31/2024 1:40 PM EST Office Visit Family Practice [facility] [place] [address] [place] [id number] Eric Brooks DO [address] [place] [phone] 11/18/2024 10:30 AM EST Office Visit Ophthalmology, [place] [address] [phone] Glenn Barrett DO [address] [id number] Nurse Tre Ophthalmology [address] [phone] 12/12/2024 3:30 PM EDT Nutrition Services Nutrition Services [place] [address] [place] [phone] Zonia Ortiz RDN 30 [facility] [address] [place] [phone] 03/28/2025 9:20 AM EDT [facility] [address] [facility] [place] [phone] Cheli Ma MD [address] [place] [address] [place] [id number] 07/18/2025 8:00 AM EDT Nurse Only Elida Hillman [address] [place] [phone] Elida, Nurse Annual Wellness [address] [place] [phone] Health Maintenance Due Date Last Done Comments Cologuard 1999 Sigmoidoscopy 1999 Fecal Occult Blood Test 04/12/2002 04/12/2001 COVID-19 Vaccine ( season) 2024 08/06/2021, 11/21/2020, 10/24/2020 Mammogram 02/03/2025 02/04/2024, 12/28, 01/22/2023, Additional history exists Adult Wellness Visit 07/12/2025 07/12/2024, 06/24/20 23 Depression Monitoring 07/12/2025 07/12/2024 , 02/25/2024, 02/25/2024, Additional history exists GFR 07/22/2025 07/22/2024, 01/27, 02/12/2024, Additional history exists Albumin/Creatinine Ratio 02/24/2027 02/25/2024 Colonoscopy 09/03/2032 09/03/2022, 08/05/2019 Colorectal Cancer Screening 09/03/2032 DXA Scan 10/27/2033 10/27/2023, 01/02/2021 DTap/Tdap Vaccines (2 - Td or Tdap) 11/18/2033 11/18/2023, 07/29/1998 Pneumococcal Vaccine: 65+ Years Completed 02/25/2022, 06/08/2019, 11/20/2016 Zoster Vaccines Completed 11/18/2023, 08/07/2023 Hepatitis C Screening Completed 02/17/2024, 019 Influenza Vaccine (FLU shot) Completed , 07/07/2023, 08/13/2022, Additional history exists HPV (Gardasil) Vaccine Aged Out No lo nger eligible based on patient's age to complete this topic Hepatitis B Vaccine Aged Out No longe r eligible based on patient's age to complete this topic MENINGOCOCCAL (MENACTRA/MENVEO) Aged Out No longer eligible based on patient's age to complete this topic documented as of this encounter Medical Devices Not on filedocumented as of this encounter Visit Diagnoses Diagnosis Preop examination- Primary Preoperative examination, unspecified Degeneration of intervertebral disc of lumbar region with discogenic back pain and lower extremity pain Spinal stenosis of lumbar region with neurogenic claudication Spinal stenosis, lumbar region, with neurogenic claudication HTN, goal below 140/90 Unspecified essential hypertension Coronary artery disease involving kashia coronary artery of kashia heart without angina pectoris Paroxysmal A-fib (HCC) Atrial fibrillation ELLA on CPAP Obstructive sleep apnea (adult) (pediatric) Mild intermittent asthma without complication Unspecified asthma documented in this encounter Advance Directives Documents on File Type Date Recorded 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 Question Answer Comments Discussion of Advance Direct scooter occurred with: Not Discussed due to patient's condition * Full Code Date Activated Date Inactivated Comments 08/09/2023 9:40 PM 08/11/2023 9:05 PM This order reflects the patients wishes and were consensually agreed upon. Question Answer Comments Discussion of Advance Direct scooter occurred with: Not Discussed due to patient's condition Does the patient have a Living Will? No Does the patient have Health Care Power of Assistant Manager Bilingual? No Care Teams Water Chemist Relationship Specialty Start Date End Date Eric Brooks DO [address] [place] [id number] PCP - General Family Medicine 08/07/23 documented as of this encounter"
--- NOTE | 2024-09-23 10:59 | History & Physical Report ---
Date of Service September 23, 2024 Assessment & Plan (1) Lumbosacral spondylosis with radiculopathy: Plan: L4-S1 decompression and fusion History of Present Illness Chief Complaint: Back and leg pain Primary Care Provider: Eric Brooks DO This is a 69-year-old female who presents with chronic persistent back and leg pain after failing course of nonoperative care is here for surgical invention. Allergies Allergy/AdvReac Type Severity Reaction Status Date / Time aspirin Allergy Intermediate Abdominal Verified 09/23/24 09:29 Pain bee venom protein (honey bee) Allergy Intermediate swelling Verified 09/23/24 09:29 metoprolol Allergy Intermediate bradycardia, Verified 09/23/24 09:29 fatigue neomycin Allergy Mild Rash Verified 09/23/24 09:29 Penicillins Allergy Mild Rash Verified 09/23/24 09:29 rofecoxib Allergy Mild Rash Verified 09/23/24 09:29 Sulfa (Sulfonamide Allergy Mild Rash Verified 09/23/24 09:29 Antibiotics) aripiprazole AdvReac Severe severe Verified 09/23/24 09:29 nightmares Home Medications Medication Instructions Recorded Confirmed Type biotin 1 mg capsule 1 mg PO QPM 08/04/23 09/23/24 History calcium 166.6 mg-vit D2 4.15 1 tab PO BID 08/04/23 09/23/24 History mcg-magnesium 83.3 mg-vit C-K2-min tablet cholecalciferol (vitamin D3) 125 125 mcg PO BID 08/04/23 09/23/24 History mcg (5,000 unit) capsule mirtazapine 15 mg tablet 15 mg PO HS 08/04/23 09/23/24 History mv-mn-folic 200 mcg-vit K 15 1 cap PO BID 08/04/23 09/23/24 History mcg-lutein 5 mg-zeaxanthin 1 mg capsule (PreserVision AREDS 2 Plus Multivit) pantoprazole 40 mg tablet,delayed 40 mg PO QAM 08/04/23 09/23/24 History release duloxetine 30 mg capsule,delayed 60 mg PO QAM 09/29/23 09/23/24 History release famotidine 20 mg tablet 20 mg PO BID 09/29/23 09/23/24 History fexofenadine 180 mg tablet 180 mg PO HS PRN Allergy Symptoms 09/29/23 09/23/24 History (Ariane Allergy) albuterol sulfate 90 mcg/actuation 2 inh inhalation Q6H PRN Shortness 04/27/24 09/23/24 History breath activated powder inhaler Of Breath bupropion HCl 150 mg 24 hr tablet, 150 mg PO QAM 04/27/24 09/23/24 History extended release fluticasone 250 mcg-salmeterol 50 1 inh inhalation BID 04/27/24 09/23/24 History mcg/dose blistr powdr for inhalation gabapentin 600 mg tablet 600 mg PO BID 04/27/24 09/23/24 History ibuprofen 200 mg capsule 800 mg PO DAILY PRN Pain 04/27/24 09/23/24 History lisinopril 10 mg tablet 10 mg PO QAM 04/27/24 09/23/24 History montelukast 10 mg tablet 10 mg PO QPM 04/27/24 09/23/24 History Sleepy Time Tea 1 dose PO HS 09/06/24 09/23/24 History multivitamin 1 tab PO QAM 09/06/24 09/23/24 History Past Med/Surg History Problem List (Updated 09/23/24 @ 10:59 by Houston Packer DO) Lumbosacral spondylosis with radiculopathy Encounter for pre-operative examination Paresthesia of right lower extremity Lumbar radiculopathy Seasonal allergies Environmental allergies Major depressive disorder Vitamin D deficiency Medical History HTN (hypertension) GERD (gastroesophageal reflux disease) Osteoarthritis Chronic back pain History of kidney stones Macular degeneration of both eyes Post traumatic stress disorder History of atrial fibrillation No known recurrence since ablation 2020 per patient Follows with [facility] cardio Sleep apnea CPAP (compliant) Dyslipidemia Surgical History History of gynecologic surgery Ectopic History of section x3 History of benign breast biopsy History of dilatation and curettage History of arthroscopy of right knee History of esophagogastroduodenoscopy (EGD) History of colonoscopy History of cholecystectomy History of tooth extraction History of wisdom tooth extraction History of surgical procedure on eye proper using laser Left History of bilateral cataract extraction (2016) History of cardiac radiofrequency ablation (RFA) 2020 (in [place]) Family History Mother Heart disease Hyperlipemia Breast cancer Thyroid disease Father Prostate cancer Colorectal cancer Brother Prostate cancer Diabetes Hypertension Asthma Grandmother (Maternal) Stroke Other No family history of adverse response to anesthesia Social History Smoking Status: Never smoker Second Hand Exposure: No; Do You Dip or Chew Tobacco: No; Tobacco Cessation Education Requested by Patient: No Hx Alcohol Use: Yes (very rarely) Hx Substance Use: Yes Preferred Language: Moldovan Communication Ability: Effective Visual Impairment: No Limitations Hearing Ability: Normal Adjunct Psychology Professor Required: No Beliefs That Will Affect Care: None marital status: Current Living Situation: Alone 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
[2024-09-23] MEDS: CLINDAMYCIN/D5W 900 MG/50 ML BAG IV SCH (11:20)
[2024-09-23] MEDS: BUPIVACAINE/EPINEPHRINE 0.25% 1:200,000 30 ML VIAL ONE (11:51)
[2024-09-23] MEDS ORDERED: fentaNYL citrate PF 100 MCG/2 ML VIAL ONE (13:02)
[2024-09-23] MEDS: SURGICEL ABSORB HEMOSTAT 2IN X 14IN TOP ONE (13:13)
[2024-09-23] MEDS: FLOSEAL HEMOSTATIC MATRIX 10ML TOP ONE (13:29)
[2024-09-23] MEDS: ceFAZolin 330 MG/ML 1 GM VIAL ONE (13:29)
--- NOTE | 2024-09-23 13:53 | Operative Report ---
Post Operative Report Pre & Post Diagnosis Operation Date: 09/23/24 10:45 Pre-Op Diagnosis: #1 lumbar spondylosis with radiculopathy. #2 lumbar spinal stenosis with neurogenic claudication. #3 spondylolisthesis L4-L5.#4 morbid obesity Post-Op Diagnosis: Same I identified the patient and participated in the time-out.: Yes Procedure Operation Date: 09/23/24 10:45 Actual Procedures #1 lumbar decompression with bilateral medial facetectomies and foraminotomies L3-L4 L4-5 L5-S1. #2 posterior spinal fusion L4-L5 L5-S1. Posterior spinal fusion #3 posterior instrumentation L4-S1. #4 interbody fusion L4-L5 L5-S1. #5 placement of Spira 13 x 26 mm x 2 at L4-5 and 12 x 26 mm x 2 at L5-S1. #6 placement locally harvested morselized autograft posterior gutters. #7 placement is collagen sponge combined with Koros in the posterior lateral gutters and os design interbody space. #8 application of versa wrap of the exposed dura. Surgeon Houston Packer, DO Aviation Manager None Estimated Blood Loss 200 Findings See Below The patient is 5 foot 5 weighing over 113 kg with a BMI in excess of 41. Patient's body mass did contribute to significant technical difficulty with positioning exposure and the procedure itself and at least 50% increased operative time. Recommend a modifier 22. Specimens None Indications This is a 69-year-old female that presents publish diagnosis after failing course of nonoperative care is here for surgical invention. Description of Procedure Patient was met with identified informed consent obtained. Patient was then taken to the operative suite underwent intubation placed in a prone position on the Roman table atop the Robin frame. All bony promises well-padded eyes inspected to ensure no external pressure placed upon them. This point the lumbar spine was prepped and draped normal sterile fashion. Sharp dissection with the assistance of Bovie cautery performed down to and exposing the lamina transverse processes of L4-5 and the sacral ala bilaterally. From a caudal to cephalad fashion complete laminectomy of L5 was performed including bilateral medial facetectomies and foraminotomies addressing severe spinal stenosis. This was followed by complete laminectomy of L4 with bilateral medial facetectomies and foraminotomies addressing severe spinal stenosis and lastly partial laminectomy of L3 with bilateral medial facetectomies to address all subarticular disease. Pedicle screws were then placed in L4-L5 and S1 levels bilaterally with assistance of fluoroscopy and appropriate size lesa placed. By way of transforaminal approach on the left discectomy of L5-S1 was performed endplates guarded to subcortical bleeding bone and a 12 x 26 mm Spira cage filled with os design bone graft apposition. Then proceeded to the right transforaminal region L5-S1. Again discectomy performed endplates guarded to s ubcortical bleeding bone and a second 12 x 26 mm spiral cage filled with os designed tapped into position. Then proceeded L4-[address] of transfer approach on the right discectomy was performed endplates guarded to subcortical bleeding bone and a 13 x 26 mm spiral cage filled with os design tapped into position. Then proceeded to the left transforaminal region at L4-5. Again discectomy performed. Endplates guided to subcortical main bone and a second 13 x 26 mm Spira cage filled with Oxyzyme tapped in position. The rods were then compressed locked in final position bilaterally. The transverse processes of L4-L5 and the sacral ala burred to subcortical bleeding bone. Infuse collagen sponge, with Koros and local autograft placed in posterior gutters. Versa wrap placed over exposed dura. 15 round LACY drain inserted. The incision was then closed with 1 Vicryl fascia 2-0 Vicryl subcutaneously and 4 Monocryl for final closure. Steri-Strips and sterile dressing placed. Patient waken taken to PACU stable condition. Im ordering 20 grams of Triple [place] Collagen Powder ([id number]) to treat an incision wound that was caused by a spine procedure. The incision is approximately 2 cm(W) x 4 cm(L) into the joint (D) in size and is a full thickness wound. Triple [place] collagen comes in 1 gram packets so 20 packets were ordered. Given the size of the wound, with light to moderate exudate I chose to order a 20 day supply. The patient will be provided instructions for proper application of the collagen wound kit. The patient will be asked to apply the collagen powder daily and then cover it with sterile dressings dispensed. Collagen was selected as I expect the collagen to attract monocytes and fibroblasts, act as a sacrificial substrate for MMPs, and ultimately proved a matrix for tissue and vessel growth. The collagen will act as a primary dressing in this scenario. It is medically necessary for proper healing of these wounds to improve bioavailability and contact with each wound surface, this is also to help prevent infection of wounds and promote healing ultimately leading to a better healing outcome and limit the risk of infection. I attest to the content of the Intraoperative Record and any orders documented therein. Any exceptions are noted below.
[2024-09-23] MEDS: fentaNYL citrate PF 100 MCG/2 ML VIAL IV PRN (14:16)
[2024-09-23] MEDS: HYDROmorphone INJ 1 MG/ML SYRINGE IV PRN ×2 (14:35→20:05)
--- NOTE | 2024-09-23 14:44 | Anesthesiology Progress Note ---
Date of Service September 23, 2024 Anesthesia Post Procedure Vital Signs Vital Signs: Temp Pulse Resp BP Pulse Ox O2 Del Method O2 Flow Rate 09/23/24 14:30 63 15 140/80 99 Oxymask 5 09/23/24 14:20 66 15 131/88 97 Oxymask 5 09/23/24 14:10 68 18 136/81 94 Oxymask 5 09/23/24 14:03 37.0 C 70 16 161/93 H 94 Oxymask 5 09/23/24 09:40 Room Air 09/23/24 09:40 37.0 C 64 18 135/91 94 Room Air Transfer of Care Handoff Completed per policy Notes Mental Status: alert / awake / arousable Patient Amnestic to Procedure: Yes Nausea / Vomiting: adequately controlled Pain: adequately controlled Airway Patency, RR, SpO2: stable & adequate BP & HR: stable & adequate Hydration State: stable & adequate Anesthetic Complications: no major complications apparent and Pt Satisfied with anesthetic care Notes: Compa OLIVAREZ
--- NOTE | 2024-09-23 15:03 | Fluoroscopy Report ---
FL lumbar spine 2-3V CLINICAL HISTORY: L4-S1 DECOMPRESSION/FUSION TECHNIQUE: 2 views were obtained with the C-arm in the OR with the above procedure. Total fluoroscopy time was 24.9 seconds. Radiation dose was 24.5 mGy. Comparison: None available at the time of this dictation. FINDINGS/IMPRESSION: Intraoperative images were obtained of L4-S1 decompression and fusion. Please correlate with intraoperative fluoroscopy and operative report. ACT 112: Negative or not required by law. Electronically signed by: Evangelista Fontana M.D. 09/23/2024 3:01 PM
[2024-09-23] MEDS ORDERED: FEXOFENADINE HCL 180 MG TAB PO PRN (16:02)
[2024-09-23] MEDS ORDERED: LORazepam 2 MG/1 ML VIAL IV PRN (16:02)
[2024-09-23] MEDS ORDERED: HYDROmorphone INJ 0.5 MG/0.5 ML SYR IV PRN (16:02)
[2024-09-23] MEDS ORDERED: METOCLOPRAMIDE HCL INJ 5 MG/ML 2 ML VIAL IV PRN (16:02)
[2024-09-23] MEDS ORDERED: FAMOTIDINE 20 MG TAB PO PRN (16:02)
[2024-09-23] MEDS ORDERED: PROMETHAZINE 12.5 MG/50.5 ML BAG IV PRN (16:02)
[2024-09-23] MEDS ORDERED: LORazepam 0.5 MG TAB PO PRN (16:02)
[2024-09-23] MEDS ORDERED: hydrOXYzine HCl 25 MG TAB PO PRN (16:02)
[2024-09-23] MEDS ORDERED: ONDANSETRON 4 MG OD TAB PO PRN (16:02)
[2024-09-23] MEDS ORDERED: NALOXONE HCL 0.4 MG/1 ML VIAL/CARP IV PRN (16:02)
[2024-09-23] MEDS ORDERED: bisacodyL 10 MG SUPP PR PRN (16:02)
[2024-09-23] MEDS ORDERED: DO NOT ADMINISTER FLU VACCINE PRN (16:02)
[2024-09-23] MEDS ORDERED: KETOROLAC TROMETHAMINE 15 MG/ML VIAL IV PRN (16:02)
[2024-09-23] MEDS ORDERED: DO NOT ADMINISTER PNEUMOCOCCAL VACCINE PRN (16:02)
[2024-09-23] MEDS ORDERED: ALUMINUM/MAGNESIUM SUSP 30 ML UDC PO PRN (16:02)
[2024-09-23] MEDS ORDERED: ACETAMINOPHEN 1,000 MG/100 ML VIAL IV PRN (16:02)
[2024-09-23] MEDS ORDERED: diphenhydrAMINE Capsule 25 MG CAP PO PRN (16:02)
[2024-09-23] MEDS ORDERED: SOD PHOSPHATE/SOD BIPHOSPHATE ENEMA 132 ML BTL PR PRN (16:02)
[2024-09-23] MEDS ORDERED: ALBUTEROL HFA 8 GM INHALER INH PRN (16:11)
[2024-09-23] MEDS: traMADol HCL 50 MG TABLET PO PRN (16:17)
--- NOTE | 2024-09-23 17:50 | Hospitalist Consultation ---
Date of Consultation September 23, 2024 Assessment & Plan (1) Lumbosacral spondylosis with radiculopathy: (2) Lumbar radiculopathy: (3) History of atrial fibrillation: (4) HTN (hypertension): (5) Dyslipidemia: (6) Sleep apnea: (7) GERD (gastroesophageal reflux disease): Plan Status post lumbar decompression fusion - Pain management, bowel regimen and DVT ppx per the primary team - PT/OT consults, pt is planning on outpatient therapy - Follow am CBC to monitor for acute blood loss - gabapentin, History of paroxysmal atrial fibrillation -No recurrence since 2019, follows with [facility] cardiology as outpatient HTN HLD -Continue lisinopril 10 mg daily ELLA on CPAP -Continue at night, compliant -Continue Advair disc GERD -Continue Protonix and famotidine Morbid obesity -BMI 41.7, encourage diet and exercise DVT ppx: teds, scds Lines: PIV x 1 FEN/GI: Heart healthy CODE: Full code Dispo: From home, likely to remain in the hospital x 1-2 days Thank you for involving us in the care of Ms. Fleming. Please do not hesitate to call with questions or concerns. At this time medicine service will follow al fanny. A total of 40 minutes were spent with greater than 50% of that time face to face with the patient, personally reviewing all current laboratories, imaging studies, past medication reconciliation, outpatient chart review, and discussion with specialists to collaborate care for the patient with attending. Please see attending documentation for corrections and/or additions. Supervising Physician Co-Signing Physician Notes Attending Addendum: Case reviewed with the advanced practitioner. I have personally performed a history and physical examination on the patient. I have reviewed the advanced practitioner's documentation on the date of service referenced in note, and I agree with, and take responsibility for the plan of care. please refer to her notes for full details patient seen and examined, records reviewed by myself as well ASSESSMENT AND PLAN other diagnoses and plan of care as per advanced practitioner's notes Aki Melendez MD History of Present Illness Reason for Consultation: Medical management Requesting Physician: Dr. Packer Attending Physician: Houston Packer, DO History of Present Illness This is a 69-year-old female with PMHx of paroxysmal A-fib, CAD, sick sinus syndrome, HTN, HLD, morbid obesity BMI of 41, ELLA on CPAP, chronic insomnia, GERD, who presents to the hospital status post elective lumbar decompression fusion by Dr. Packer. She is doing well currently, reports pain is well controlled. She has tolerated feed without any difficulty. Patient has brought her CPAP machine with her and also has a TENS nerve stimulator with her at bedside and is asking questions about starting different modality tomorrow after spinal surgery. Last bowel movement was this morning. She denies any numbness or issues moving lower extremities. Burr catheter is still in place draining clear yellow urine. Allergies Allergy/AdvReac Type Severity Reaction Status Date / Time aspirin Allergy Intermediate Abdominal Verified 09/23/24 09:29 Pain bee venom protein (honey bee) Allergy Intermediate swelling Verified 09/23/24 09:29 metoprolol Allergy Intermediate bradycardia, Verified 09/23/24 09:29 fatigue neomycin Allergy Mild Rash Verified 09/23/24 09:29 Penicillins Allergy Mild Rash Verified 09/23/24 09:29 rofecoxib Allergy Mild Rash Verified 09/23/24 09:29 Sulfa (Sulfonamide Allergy Mild Rash Verified 09/23/24 09:29 Antibiotics) aripiprazole AdvReac Severe severe Verified 09/23/24 09:29 nightmares Home Medications Medication Instructions Recorded Confirmed Type biotin 1 mg capsule 1 mg PO QPM 08/04/23 09/23/24 History calcium 166.6 mg-vit D2 4.15 1 tab PO BID 08/04/23 09/23/24 History mcg-magnesium 83.3 mg-vit C-K2-min tablet cholecalciferol (vitamin D3) 125 125 mcg PO BID 08/04/23 09/23/24 History mcg (5,000 unit) capsule mirtazapine 15 mg tablet 15 mg PO HS 08/04/23 09/23/24 History mv-mn-folic 200 mcg-vit K 15 1 cap PO BID 08/04/23 09/23/24 History mcg-lutein 5 mg-zeaxanthin 1 mg capsule (PreserVision AREDS 2 Plus Multivit) pantoprazole 40 mg tablet,delayed 40 mg PO QAM 08/04/23 09/23/24 History release duloxetine 30 mg capsule,delayed 60 mg PO QAM 09/29/23 09/23/24 History release famotidine 20 mg tablet 20 mg PO BID 09/29/23 09/23/24 History fexofenadine 180 mg tablet 180 mg PO HS PRN Allergy Symptoms 09/29/23 09/23/24 History (Ariane Allergy) albuterol sulfate 90 mcg/actuation 2 inh inhalation Q6H PRN Shortness 04/27/24 09/23/24 History breath activated powder inhaler Of Breath bupropion HCl 150 mg 24 hr tablet, 150 mg PO QAM 04/27/24 09/23/24 History extended release fluticasone 250 mcg-salmeterol 50 1 inh inhalation BID 04/27/24 09/23/24 History mcg/dose blistr powdr for inhalation gabapentin 600 mg tablet 600 mg PO BID 04/27/24 09/23/24 History ibuprofen 200 mg capsule 800 mg PO DAILY PRN Pain 04/27/24 09/23/24 History lisinopril 10 mg tablet 10 mg PO QAM 04/27/24 09/23/24 History montelukast 10 mg tablet 10 mg PO QPM 04/27/24 09/23/24 History Sleepy Time Tea 1 dose PO HS 09/06/24 09/23/24 History multivitamin 1 tab PO QAM 09/06/24 09/23/24 History Patient History Medical History HTN (hypertension) GERD (gastroesophageal reflux disease) Osteoarthritis Chronic back pain History of kidney stones Macular degeneration of both eyes Post traumatic stress disorder History of atrial fibrillation No known recurrence since ablation 2020 per patient Follows with [facility] cardio Sleep apnea CPAP (compliant) Dyslipidemia Surgical History History of gynecologic surgery Ectopic History of section x3 History of benign breast biopsy History of dilatation and curettage History of arthroscopy of right knee History of esophagogastroduodenoscopy (EGD) History of colonoscopy History of cholecystectomy History of tooth extraction History of wisdom tooth extraction History of surgical procedure on eye proper using laser Left History of bilateral cataract extraction (2016) History of cardiac radiofrequency ablation (RFA) 2020 (in [place]) Family History Mother Heart disease Hyperlipemia Breast cancer Thyroid disease Father Prostate cancer Colorectal cancer Brother Prostate cancer Diabetes Hypertension Asthma Grandmother (Maternal) Stroke Other No family history of adverse response to anesthesia Social History Smoking Status: Never smoker Second Hand Exposure: No; Do You Dip or Chew Tobacco: No; Tobacco Cessation Education Requested by Patient: No Hx Alcohol Use: Yes (very rarely) Hx Substance Use: Yes Preferred Language: Maldivian Communication Ability: Effective Visual Impairment: No Limitations Hearing Ability: Normal Personal Care Aide Required: No Beliefs That Will Affect Care: None marital status: Current Living Situation: Alone 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 Other Information That Helps Us Care for You: No Feels Safe at Home: Yes Safety Concerns: Feels Safe At This Time Assistive Devices: CPAP and Glasses Assistive Devices Comment: reading glasses Review of Systems Review of Systems: Constitutional: No fever, sweats or chills Eyes: No diplopia, no worsening or blurred vision ENT: normal hearing, no trouble swallowing Respiratory: No cough, sputum, dyspnea at rest or on exertion Cardiovascular: No chest pain, tightness or palpitations Abdomen: No pain, nausea, vomiting, diarrhea or constipation Musculoskeletal: No joint pain, calf pain, swelling Neurologic: No weakness, numbness/tingling, or balance problems Psychiatric: No anxiety or depression Skin: No rash or itch Physical Exam Physical Exam: General: awake, alert, no apparent distress, obese white female Head: Normocephalic, atraumatic ENT: PERRL, EOMI, no pharyngeal exudate, mucous membranes moist Chest: Clear to auscultation, on room air, no adventitious breath sounds Cardiac: Regular rate and rhythm, no murmur, no JVD, normal peripheral pulses, good capillary refill Abdominal: NABS x 4 quadrants, soft, nondistended, nontender to palpation, no rebound or guarding Back: Dressing C/D/I, Chuck drain with serosanginous bloody outs : Burr catheter draining clear yellow urine Extremities: Normal inspection, no peripheral edema or erythema, calfs nontender to palpation Psych: Normal mood and affect Neuro: AAO x 3, strength intact bilaterally and rated 5/5, no motor deficits, speech is clear, no peripheral sensory deficits Results & Data Results & Data Vital Signs (Past 12 Hours) Vital Signs Temp Pulse Pulse Resp BP Pulse Ox O2 Del Method 09/23/24 16:32 36.4 C L 67 18 124/80 97 Nasal Cannula 09/23/24 16:02 36.7 C 73 18 133/87 95 Nasal Cannula 09/23/24 15:40 36.4 C L 61 16 130/74 97 Nasal Cannula 09/23/24 15:25 71 16 132/82 97 Nasal Cannula 09/23/24 15:10 62 16 125/78 97 Nasal Cannula 09/23/24 15:00 61 16 119/78 98 Nasal Cannula 09/23/24 14:50 36.4 C L 65 14 126/70 98 Nasal Cannula 09/23/24 14:40 62 13 146/88 H 97 Nasal Cannula 09/23/24 14:30 63 15 140/80 99 Oxymask 09/23/24 14:20 66 15 131/88 97 Oxymask 09/23/24 14:10 68 18 136/81 94 Oxymask 09/23/24 14:03 37.0 C 70 16 161/93 H 94 Oxymask 09/23/24 09:40 Room Air 09/23/24 09:40 37.0 C 64 18 135/91 94 Room Air O2 Flow Rate 09/23/24 16:32 2 09/23/24 16:02 2 09/23/24 15:40 2 09/23/24 15:25 2 09/23/24 15:10 2 09/23/24 15:00 2 09/23/24 14:50 4 09/23/24 14:40 4 09/23/24 14:30 5 09/23/24 14:20 5 09/23/24 14:10 5 09/23/24 14:03 5 09/23/24 09:40 09/23/24 09:40 Laboratory Results 09/23/24 09:28 Blood Type A Positive Antibody Screen NEGATIVE Crossmatch See Detail
[2024-09-23] MEDS: GABAPENTIN 600 MG TAB PO SCH (20:02)
[2024-09-23] MEDS: MIRTAZAPINE TAB 15 MG TAB PO SCH (20:02)
[2024-09-23] MEDS: MONTELUKAST SODIUM 10 MG TABLET PO SCH (20:02)
[2024-09-23] MEDS: CHOLECALCIFEROL 125 MCG (5,000 UNITS) TAB PO SCH (20:02)
[2024-09-23] MEDS: FAMOTIDINE 20 MG TAB PO SCH (20:02)
[2024-09-23] MEDS: DOCUSATE SODIUM/SENNA 50/8.6MG TAB PO SCH (20:02)
[2024-09-23] MEDS: CLINDAMYCIN/D5W 600 MG/50 ML BAG IV SCH (20:05)
[2024-09-23] MEDS ORDERED: [UNRECOGNIZED DRUG - OTHER] PO SCH (21:00)
[2024-09-24 06:00] LABS: Basophils # (auto) 0.03 K/uL (0.00-0.20); Basophils % (auto) 0.3 %; Hematocrit (blood only) 33.2 % (37.0-47.0); Hemoglobin 10.7 g/dl (12.0-16.0); Immature Granulocytes # (auto) 0.06 K/uL (0.01-0.20); Immature Granulocytes % (auto) 0.6 %; Lymphocytes % (auto) 10.4 %; Mean Corpuscular Hemoglobin 28.5 pg (25.0-34.0); Mean Corpuscular Hgb Conc 32.2 g/dL (32.0-36.0); Mean Corpuscular Volume 88.5 fL (80.0-100.0); Mean Platelet Volume 9.3 fL (9.4-12.4); Monocytes # (auto) 0.77 K/uL (0.11-0.59); Neutrophils # (auto) 7.79 K/uL (1.40-6.50); Neutrophils % (auto) 80.7 %; Platelet Count 303 K/uL (130-400); RDW Coefficient of Variation 13.9 % (11.5-14.5); RDW Standard Deviation 45.4 fL (36.4-46.3); Red Blood Count 3.75 M/uL (4.20-5.40); White Blood Count 9.65 K/ul (4.8-10.8)
[2024-09-24] MEDS: POLYETHYLENE (MIRALAX) 17 GM PACK PO SCH (06:05)
[2024-09-24 06:16] LABS: BUN Creatinine Ratio 22.5 (10-20); Calcium 8.9 mg/dl (8.6-10.3); Creatinine Clr Calc Pharmacy 82.3 ml/min; Potassium 4.2 mmol/L (3.5-5.1)
[2024-09-24] MEDS: PANTOprazole 40 MG TAB PO SCH (09:08)
[2024-09-24] MEDS: MULTIVITAMIN TAB PO SCH (09:08)
[2024-09-24] MEDS: CEROVITE ADV FORMULA TAB PO SCH (09:08)
[2024-09-24] MEDS: buPROPion XL 150 MG TABCR PO SCH (09:09)
[2024-09-24] MEDS: FLUTICASONE/VILANTEROL 200/25MCG 14 PUFFS/INHALER INH SCH (09:09)
[2024-09-24] MEDS: lisinopril 10 MG TAB PO SCH (09:09)
[2024-09-24] MEDS: DULoxetine HCL 60 MG CAP PO SCH (09:09)
[2024-09-24] MEDS: ACETAMINOPHEN 500 MG TAB PO PRN (09:13)
[2024-09-24] MEDS: oxyCODONE HCL IR 5 MG TAB (IMMEDIATE RELEASE) PO PRN (09:13)
--- NOTE | 2024-09-24 09:23 | Orthopedic Progress Note ---
Date of Service September 24, 2024 Assessment & Plan (1) Lumbosacral spondylosis with radiculopathy: Plan: At this point initiate physical therapy monitor LACY output anticipate discharge home in the next few days. Admission and Anticipated Discharge Date Admission Date: September 23, 2024 Subjective Patient's back pain is controlled. She has some numbness and tingling of the right foot. This was present preoperatively. She has not been out of bed yet. Physical Exam Physical Exam: On exam she is comfortable. Has good strength testing. Results & Data Vital Signs (Past 12 Hours) Vital Signs Temp Pulse Resp BP Pulse Ox O2 Del Method 09/24/24 07:39 36.4 C L 64 16 103/66 95 Room Air 09/24/24 03:24 36.5 C 62 15 91/53 L 94 Room Air 09/23/24 23:08 36.4 C L 62 16 115/63 90 Room Air Queries Orthopedic Spine Acute Posthemorrhagic Anemia: Yes Obesity: Yes
[2024-09-24] MEDS: dexAMETHasone 6 MG in SYRINGE 0 ML IV SCH (10:36)
[2024-09-24] MEDS: ACETAMINOPHEN 500 MG TAB PO SCH (11:01)
--- NOTE | 2024-09-24 15:07 | Hospitalist Progress Note ---
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 Packer. #Lumbar radiculopathy status post lumbar decompression fusion - Pain management, bowel regimen and DVT ppx per the primary team - PT/OT consults, pt is planning on outpatient therapy - Analgesia per primary #Acute blood loss anemia, s/p post-op losses - Follow am CBC -Monitor LACY drain op #paroxysmal atrial fibrillation -No recurrence since 2019, follows with [facility] cardiology as outpatient #HTN #HLD -Continue lisinopril 10 mg daily #ELLA on CPAP -Continue at night, compliant -Continue Advair disc #GERD -Continue Protonix and famotidine #Morbid obesity -BMI 41.7, encourage diet and exercise DVT ppx: teds, scds Lines: PIV x 1 FEN/GI: Heart healthy CODE: Full code Dispo: From home, likely to remain in the hospital x 1-2 days Thank you for involving us in the care of Ms. Fleming. Please do not hesitate to call with questions or concerns. At this time medicine service will follow along. Admission and Anticipated Discharge Date Admission Date: September 23, 2024 Subjective NAEO Reports RLE with worsening foot drop and numbness, but also notes these symptoms present prior to procedure Denies SOB, chest pain or other acute concerns Physical Exam Constitutional: WD/WN, vitals as above Respiratory: normal respiratory effort, lungs clear to auscultation Cardiovascular: RRR, no murmur, no edema Gastrointestinal (Abdomen): normal bowel sounds, soft, nontender, no hepatosplenomegaly Musculoskeletal: 4/5 dorsiflexion on RLE, 3/5 plantar fle xion RLE Results & Data Results & Data Vital Signs (Past 12 Hours) Vital Signs Temp Pulse Resp BP Pulse Ox O2 Del Method 09/24/24 12:07 36.5 C 75 18 117/73 94 Room Air 09/24/24 08:00 Room Air, CPAP 09/24/24 07:39 36.4 C L 64 16 103/66 95 Room Air 09/24/24 03:24 36.5 C 62 15 91/53 L 94 Room Air Laboratory Results Short CBC 09/24/24 Range/Units 05:37 WBC 9.65 (4.8-10.8) K/ul Hgb 10.7 L (12.0-16.0) g/dl Hct 33.2 L (37.0-47.0) % Plt Count 303 (130-400) K/uL BMP 09/24/24 05:37 Sodium 138 Potassium 4.2 Chloride 106 Carbon Dioxide 26 BUN 18 Creatinine 0.80 Glucose 117 H Calcium 8.9 Medications Administered Home Medications Medication Instructions Recorded Confirmed Last Taken biotin 1 mg capsule 1 mg PO QPM 08/04/23 09/23/24 2 Weeks Ago ~09/09/24 calcium 166.6 mg-vit D2 4.15 1 tab PO BID 08/04/23 09/23/24 09/22/24 mcg-magnesium 83.3 mg-vit C-K2-min tablet cholecalciferol (vitamin D3) 125 125 mcg PO BID 08/04/23 09/23/24 09/22/24 mcg (5,000 unit) capsule mirtazapine 15 mg tablet 15 mg PO HS 08/04/23 09/23/24 09/22/24 mv-mn-folic 200 mcg-vit K 15 1 cap PO BID 08/04/23 09/23/24 09/21/24 mcg-lutein 5 mg-zeaxanthin 1 mg capsule (PreserVision AREDS 2 Plus Multivit) pantoprazole 40 mg tablet,delayed 40 mg PO QAM 08/04/23 09/23/24 09/22/24 release duloxetine 30 mg capsule,delayed 60 mg PO QAM 09/29/23 09/23/24 09/22/24 release famotidine 20 mg tablet 20 mg PO BID 09/29/23 09/23/24 09/22/24 fexofenadine 180 mg tablet 180 mg PO HS PRN Allergy Symptoms 09/29/23 09/23/24 09/22/24 (Ariane Allergy) albuterol sulfate 90 mcg/actuation 2 inh inhalation Q6H PRN Shortness 04/27/24 09/23/24 09/23/24 08:00 breath activated powder inhaler Of Breath bupropion HCl 150 mg 24 hr tablet, 150 mg PO QAM 04/27/24 09/23/24 09/22/24 extended release fluticasone 250 mcg-salmeterol 50 1 inh inhalation BID 04/27/24 09/23/24 09/23/24 08:00 mcg/dose blistr powdr for inhalation gabapentin 600 mg tablet 600 mg PO BID 04/27/24 09/23/24 09/22/24 ibuprofen 200 mg capsule 800 mg PO DAILY PRN Pain 04/27/24 09/23/24 1 Week Ago ~09/16/24 lisinopril 10 mg tablet 10 mg PO QAM 04/27/24 09/23/24 09/22/24 montelukast 10 mg tablet 10 mg PO QPM 04/27/24 09/23/24 09/22/24 Sleepy Time Tea 1 dose PO HS 09/06/24 09/23/24 09/21/24 multivitamin 1 tab PO QAM 09/06/24 09/23/24 2 Weeks Ago ~09/09/24 oxycodone 5 mg tablet 5 mg PO Q6H PRN pain #30 tabs 09/24/24 Unknown tramadol 50 mg tablet 50 mg PO Q6H PRN pain, moderate 09/24/24 Unknown #30 tabs Active Medications Generic Name Dose Route Start Last Admin Trade Name Freq PRN Reason Stop Dose Admin Acetaminophen 1,000 mg 09/24/24 10:15 09/24/24 11:01 Acetaminophen 500 Mg Tab PO 10/24/24 10:14 Not Given Q8H EM Bupropion HCl 150 mg 09/24/24 09:00 09/24/24 09:09 Bupropion Xl 150 Mg Tabcr PO 10/24/24 08:59 150 mg QAM EM Administration Duloxetine HCl 60 mg 09/24/24 09:00 09/24/24 09:09 Duloxetine Hcl 60 Mg Cap PO 10/24/24 08:59 60 mg QAM EM Administration Famotidine 20 mg 09/23/24 21:00 09/24/24 09:08 Famotidine 20 Mg Tab PO 10/23/24 20:59 20 mg BID EM Administration Fluticasone/Vilanterol 1 puffs 09/24/24 09:00 09/24/24 09:09 Fluticasone/Vilanterol 200/25mcg 14 Puffs/Inhaler INH 10/24/24 08:59 1 puffs DAILY EM Administration Protocol Gabapentin 600 mg 09/23/24 21:00 09/24/24 09:09 Gabapentin 600 Mg Tab PO 10/23/24 20:59 600 mg BID EM Administration Hydromorphone HCl 1 mg 09/23/24 16:02 09/23/24 20:05 Hydromorphone Inj 1 Mg/Ml Syringe IV 10/07/24 16:01 1 mg Q3H PRN Administration SEVERE Pain (Scale 7,8,9,10) Dexamethasone 6 mg/ Syringe 1.5 mls @ 1 mls/min 09/24/24 09:00 09/24/24 10:36 IV 09/26/24 09:02 1 mls/min DAILY EM Administration Lisinopril 10 mg 09/24/24 09:00 09/24/24 09:09 Lisinopril 10 Mg Tab PO 10/24/24 08:59 10 mg QAM EM Administration Mirtazapine 15 mg 09/23/24 21:00 09/23/24 20:02 Mirtazapine Tab 15 Mg Tab PO 10/23/24 20:59 15 mg HS EM Administration Montelukast Sodium 10 mg 09/23/24 21:00 09/23/24 20:02 Montelukast Sodium 10 Mg Tablet PO 10/23/24 20:59 10 mg QPM EM Administration Multivitamins 1 tab 09/24/24 09:00 09/24/24 09:08 Multivitamin Tab PO 10/24/24 08:59 1 tab QAM EM Administration Multivitamins/Minerals 1 tab 09/24/24 09:00 09/24/24 09:08 Cerovite Adv Formula Tab PO 10/24/24 08:59 1 tab DAILY EM Administration Oxycodone HCl 5 - 10 mg 09/23/24 16:02 09/24/24 09:13 Oxycodone Hcl Ir 5 Mg Tab (Immediate Release) PO 10/07/24 16:01 10 mg Q4H PRN Administration Pain & Pre PT Pantoprazole Sodium 40 mg 09/24/24 09:00 09/24/24 09:08 Pantoprazole 40 Mg Tab PO 10/24/24 08:59 40 mg QAM EM Administration Polyethylene Glycol 17 gm 09/24/24 06:00 09/24/24 13:01 Polyethylene (Miralax) 17 Gm Pack PO 10/24/24 05:59 Not Given Q6 EM Senna/Docusate Sodium 2 tab 09/23/24 21:00 09/23/24 20:02 Docusate Sodium/Senna 50/8.6mg Tab PO 10/23/24 20:59 2 tab HS EM Administration Tramadol HCl 50 - 100 mg 09/23/24 16:02 09/24/24 10:39 Tramadol Hcl 50 Mg Tablet PO 10/23/24 16:01 100 mg Q4H PRN Administration Moderate-Severe pain & Pre PT Vitamin D 125 mcg 09/23/24 21:00 09/24/24 09:08 Cholecalciferol 125 Mcg (5,000 Units) Tab PO 10/23/24 20:59 125 mcg BID EM Administration
[2024-09-25 06:20] LABS: Hematocrit (blood only) 32.2 % (37.0-47.0); Hemoglobin 10.4 g/dl (12.0-16.0); Mean Corpuscular Hemoglobin 29.1 pg (25.0-34.0); Mean Corpuscular Hgb Conc 32.3 g/dL (32.0-36.0); Mean Corpuscular Volume 90.2 fL (80.0-100.0); Mean Platelet Volume 9.5 fL (9.4-12.4); Platelet Count 293 K/uL (130-400); RDW Coefficient of Variation 14.2 % (11.5-14.5); RDW Standard Deviation 46.4 fL (36.4-46.3); Red Blood Count 3.57 M/uL (4.20-5.40); White Blood Count 8.97 K/ul (4.8-10.8)
--- NOTE | 2024-09-25 07:44 | Orthopedic Progress Note ---
Date of Service September 25, 2024 Assessment & Plan (1) Lumbosacral spondylosis with radiculopathy: Plan: Patient is stable postoperative #2 status post L4-S1 decompression and fusion. Emilia continue to mobilize her. She is to get up with physical therapy. I e ncouraged her to use her spirometer. Organ maintain her LACY drain is still placing out significant amount. Will see how she does with therapy today. She has informed that she does live by herself and may need home nursing and home physical therapy. Admission and Anticipated Discharge Date Admission Date: September 23, 2024 Subjective Patient was seen bedside in room 314. She had difficulties getting up with physical therapy yesterday and essentially just got to the chair. She feels that her right leg is weak. She is not having radicular complaints however. The leg does seem like it stronger this morning. She has been tolerating p.o. She denies any other numbness, tingling, paresthesias. Physical Exam Physical Exam: On exam she is alert and oriented. Her abdomen soft and nontender calves are supple and nontender. Her LACY drain is in place is put out 50 cc, 70 cc, and 60 cc on her last 3 measurements. Her hematocrit was 32.2 and her hemoglobin was 10.4. Her cardiovascular exam reveals no gross abnormalities her respirations are smooth and unlabored. Results & Data Vital Signs (Past 12 Hours) Vital Signs Temp Pulse Resp BP Pulse Ox O2 Del Method 09/25/24 07:22 36.7 C 69 16 105/65 93 Room Air 09/24/24 20:00 36.8 C 64 22 126/76 96 Room Air 09/24/24 19:55 Room Air, CPAP
[2024-09-25] MEDS: MAGNESIUM HYDROXIDE SUSP 30 ML UDC PO PRN (10:49)
--- NOTE | 2024-09-25 14:43 | Hospitalist Progress Note ---
Date of Service September 25, 2024 Assessment & Plan (1) Lumbosacral spondylosis with radiculopathy: (2) Lumbar radiculopathy: (3) HTN (hypertension): (4) Dyslipidemia: (5) Sleep apnea: (6) GERD (gastroesophageal reflux disease): (7) Paroxysmal A-fib: Plan Patient status post lumbar surgery with ongoing foot drop. Reviewed PT note, recommending acute rehab Continue medical therapies as prescribed Case management for possible placement Admission and Anticipated Discharge Date Admission Date: September 23, 2024 Subjective Patient states pain overall decent control. Is needing assistance to ambulate and get around Physical Exam Physical Exam: Constitutional: Alert, in chair, nontoxic HEENT: Mucous membranes moist. Lungs: Clear to auscultation, decreased, no wheezes rales or rhonchi CV: S1-S2, regular Abdomen: Soft, nontender, nondistended Extremities: No significant edema Musculoskeletal: LACY drains in place from lumbar incision Neuro: No focal deficits Psych: Cooperative, normal mood Results & Data Results & Data Vital Signs (Past 12 Hours) Vital Signs Temp Pulse Resp BP Pulse Ox O2 Del Method 09/25/24 07:50 Room Air, CPAP 09/25/24 07:22 36.7 C 69 16 105/65 93 Room Air Laboratory Results Reviewed imaging, laboratory and diagnostic studies. Pertinent findings as below. Hemoglobin 10.4, stable
--- NOTE | 2024-09-26 10:28 | Hospitalist Progress Note ---
Date of Service September 26, 2024 Assessment & Plan (1) Lumbosacral spondylosis with radiculopathy: (2) Lumbar radiculopathy: (3) HTN (hypertension): (4) Dyslipidemia: (5) Sleep apnea: (6) GERD (gastroesophageal reflux disease): (7) Paroxysmal A-fib: Plan Patient status post lumbar surgery, continue to do well. Patient is learning to better ambulate with her foot drop and becoming more profession. Continuing therapies, determine if patient can return home safely versus potential rehab Case management aware that patient may need rehab Medical issues are maximized and stabilized for discharge when appropriate for discharge from surgical attending. Admission and Anticipated Discharge Date Admission Date: September 23, 2024 Subjective Patient reports pain is controlled. Starting to understand a little bit better as she needs to pick her knee up to ambulate so her foot does not drag. Feeling a bit more confident about going home Physical Exam Physical Exam: Constitutional: Alert, sitting in chair, fully dressed HEENT: Mucous membranes moist. Lungs: Clear to auscultation, decreased, no wheezes rales or rhonchi CV: S1-S2, regular Abdomen: Soft, nontender, nondistended Extremities: No significant edema Musculoskeletal: Surgical dressing dry and intact, LACY drains in place Neuro: No focal deficits Psych: Cooperative, normal mood Results & Data Results & Data Vital Signs (Past 12 Hours) Vital Signs Temp Pulse Resp BP Pulse Ox O2 Del Method 09/26/24 07:32 36.8 C 65 16 119/69 93 Room Air Diagnostic Findings Reviewed imaging, laboratory and diagnostic studies. Pertinent findings as below.
--- NOTE | 2024-09-27 10:03 | Discharge Summary ---
Date of Service September 27, 2024 Admission HPI Per Admitting Provider This is a 69-year-old female who presents with chronic persistent back and leg pain after failing course of nonoperative care is here for surgical invention. Principal Diagnosis Lumbar spinal stenosis with spondylolisthesis and spondylosis with radiculopathy Discharge Data Allergies Allergy/AdvReac Type Severity Reaction Status Date / Time aspirin Allergy Intermediate Abdominal Verified 09/23/24 09:29 Pain bee venom protein (honey bee) Allergy Intermediate swelling Verified 09/23/24 09:29 metoprolol Allergy Intermediate bradycardia, Verified 09/23/24 09:29 fatigue neomycin Allergy Mild Rash Verified 09/23/24 09:29 Penicillins Allergy Mild Rash Verified 09/23/24 09:29 rofecoxib Allergy Mild Rash Verified 09/23/24 09:29 Sulfa (Sulfonamide Allergy Mild Rash Verified 09/23/24 09:29 Antibiotics) aripiprazole AdvReac Severe severe Verified 09/23/24 09:29 nightmares Consultations 09/23/24 16:02 Consult Hospitalist Routine Procedures Performed Operation Date: 09/23/24 10:45 Actual Procedures p L4-S1 Decompression and Fusion(Not Applicable) - Houston Packer DO Ordered Studies 09/23/24 10:45 FL lumbar spine 2-3V Routine Hospital Course (1) Lumbosacral spondylosis with radiculopathy: Patient underwent lumbar decompression fusion trial as well as taken to orthopedic for postoperative. Postop she progressed appropriately. Improvement of her leg radiculopathy. She did require significant assistance with therapy and is subsequently recommended to discharge to rehab. Total Time Total Time Spent Total Time Spent (In Minutes): 20 minutes Discharge Plan Discharge Items Patient Disposition: Transfer Inpatient Rehab Fac Reason For Visit: Spinal Stenosis Lumbar Region Neurogenic Claudicat Discharge Diagnosis: Lumbar spondylosis with radiculopathy Activity: As commented below Non-emergency contact: Primary Care Provider Call non-emergency contact if: you have any medication questions Follow-up/Referrals: Eric Brooks DO [Primary Care Provider] - Diet: Regular Addtl Attending Provider Instructions: ACTIVITY RECOMMENDATIONS: SELF CARE INSTRUCTIONS AFTER THORACIC/LUMBAR FUSIONS 1. You may walk to your tolerance. It is good exercise for your legs and back. Expect some back and intermittent leg aches and pains. 2. You may perform "counter-top" level activities (make a sandwich, victoria with a project, etc.). 3. No bending or lifting of more than 10 pounds or back twisting of any nature (roll like a log when turning in bed). 4. You may ride in a car for 20-30 minutes at a time. No driving until after your first visit with your doctor. 5. Frequent changes of position and restricting sitting to 30 minutes at a time will help limit the amount of back spasms and stiffness you may experience. 6. You may discontinue the use of ambulatory aids (cane, crutches, etc.) once your strength and confidence allow. 7. You may electric lineman the shower and let water strike your incision when you arrive home at least once daily. Do not take a tub bath, sit in a hot tub or go into a swimming pool until after your first recheck in the office. 8. You may resume previous diet. SPECIAL CARE INSTRUCTIONS: VERY IMPORTANT TO READ AND REVIEW A. Your surgical incision has been closed with a cosmetic suture under the skin that will dissolve in about 6 weeks. In 14 days, you can use a pair of clean scissors and cut the suture that is left outside of the skin at the ends of your incision. 1. The small skin tapes can be removed 7 days after surgery if they have not fallen off by that point. 2. You may keep the wound open to air as much as possible to promote healing after post-op day number 5 unless told otherwise by your doctor. 3. If you think the wound looks like it is becoming infected (redness or worsening drainage) and/or you are experiencing fever, chill or worsening back pain and muscle spasms, contact the office so that we may evaluate you as soon as possible. B. Complications are uncommon, but please contact us if you have any signs or symptoms of: 1. wound infection (fever higher than 102.5 degrees F, redness, separation of wound, drainage, or increasing pain from the incision) 2. blood clots in legs (pain, swelling, redness and warmth in legs) 3. urinary tract infection (fever higher than 102.5 degrees F, burning upon urination or increased frequency of urination) 4. nerve problems (inability to walk on your toes or heels, numbness, loss of bowel or bladder control) 5. any other symptoms that concern you C. Please call the office at if you have any concerns or questions about your operation or recovery. D. No smoking! Smoking drastically decreases the chance of a solid fusion. E. Do not take any anti-inflammatory medications (Indocin, Advil, Motrin, Aspirin, Naprosyn, etc.) as these may inhibit the chance of a solid fusion. Tylenol is okay to take for pain. MANAGING PAIN AFTER SPINAL SURGERY 1. Narcotic medication is intended for short-term use and will be provided for surgical pain. Surgical pain usually lasts for a period of 4-6 weeks. Narcotic medication includes Percocet, Vicodin, Darvocet, Tylenol #3 or Lortab. 2. Longer-term pain is more appropriately treated with non-narcotic medication such as Tylenol ES. 3. Muscle spasm is not appropriately treated with narcotics. Muscle relaxers such as Soma, Flexeril or Skelaxin can be used along with Tylenol ES. 4. Remember that we all live with some "aches and pains". This is not unusual or uncommon after an injury or as we get older. a. Back pain is expected and may include muscle spasms for 4 to 6 weeks after surgery. The pain should gradually improve. If the pain worsens for no apparent reason, please contact the office. b. Intermittent leg pain may also be experienced and should not be concerned about unless it worsens for no apparent reason. If so, please contact the office. 5. We will provide appropriate medication within the normal guidelines of their prescribed use. We will also be very cautious and aware of potential abuse and extended duration of patients' medication needs. a. Pain medications are for your comfort and to assist with sleep and rest so that the tissue can heal. They are not provided in order to return to normal activity and should not be used through the day. To do so or worsening pain at night can result from ongoing tissue damage and development of tolerance to the prescribed medicine. 6. Please allow 2-3 days to process refills. Prescriptions will not be mailed but must be picked up at the office. FOLLOW UP VISIT: Keep your scheduled follow-up appointment. Any questions, please call the office at . Pending Studies at Discharge: No Stand-Alone Forms: [employer] Smoking Cessation Skilled Items Patient informed of condition?: Yes DNR: No Discharge Level of Care: Acute rehab Communicable Disease: No Discharge Prognosis: Improving Lines: None Urinary Catheter: No Medications and DC Order Prescriptions: New tramadol 50 mg tablet 50 mg PO Q6H PRN (Reason: pain, moderate) Qty: 30 0RF oxycodone 5 mg tablet 5 mg PO Q6H PRN (Reason: pain) Qty: 30 0RF Continued bupropion HCl 150 mg tablet extended release 24 hr 150 mg PO QAM fluticasone propion-salmeterol 250-50 mcg/dose blister with device 1 inh inhalation BID montelukast 10 mg tablet 10 mg PO QPM lisinopril 10 mg tablet 10 mg PO QAM gabapentin 600 mg tablet 600 mg PO BID albuterol sulfate 90 mcg/actuation aerosol powdr breath activated 2 inh inhalation Q6H PRN (Reason: Shortness Of Breath) [id number]-C-K2-min 166.6 mg-4.15 mcg-83.3 mg tablet 1 tab PO BID biotin 1 mg capsule 1 mg PO QPM cholecalciferol (vitamin D3) 125 mcg (5,000 unit) capsule 125 mcg PO BID PreserVision AREDS 2 Plus MV 200 mcg-15 mcg- 5 mg-1 mg capsule 1 cap PO BID pantoprazole 40 mg tablet,delayed release (DR/EC) 40 mg PO QAM mirtazapine 15 mg tablet 15 mg PO HS fexofenadine [Ariane Allergy] 180 mg tablet 180 mg PO HS PRN (Reason: Allergy Symptoms) duloxetine 30 mg capsule,delayed release(DR/EC) 60 mg PO QAM famotidine 20 mg tablet 20 mg PO BID multivitamin Tablet 1 tab PO QAM Sleepy Time Tea 1 dose PO HS Discontinued ibuprofen 200 mg capsule 800 mg PO DAILY PRN (Reason: Pain) Discharge Orders: Discharge Order (Routine); Ordered 09/27/24 Ordered By: Houston Packer Admission Data Admit Date/Time: 09/23/24 14:04 Attending Provider: Houston Packer Admit Provider: Houston Packer Primary Care Provider: Eric Brooks Other Providers: Sloane Girard; Priscilla Yates [place]
--- NOTE | 2024-09-27 14:09 | Hospitalist Progress Note ---
Date of Service September 27, 2024 Assessment & Plan (1) Lumbosacral spondylosis with radiculopathy: (2) Lumbar radiculopathy: (3) HTN (hypertension): (4) Dyslipidemia: (5) Sleep apnea: (6) GERD (gastroesophageal reflux disease): (7) Paroxysmal A-fib: Plan Patient status post spinal surgery. Medical issues have been stable. Recommend continuing outpatient medications as prior to admission Medically ready to be discharged to rehab facility Admission and Anticipated Discharge Date Admission Date: September 23, 2024 Subjective No acute issues overnight. Walked around unit earlier. Physical Exam Physical Exam: Constitutional: Alert, sitting in chair HEENT: Mucous membranes moist. Lungs: Clear to auscultation, decreased, no wheezes rales or rhonchi CV: S1-S2, regular Abdomen: Soft, nontender, nondistended Extremities: No significant edema Neuro: No focal deficits Psych: Cooperative, normal mood Results & Data Results & Data Vital Signs (Past 12 Hours) Vital Signs Temp Pulse Resp BP Pulse Ox O2 Del Method 09/27/24 07:58 36.7 C 69 18 135/93 97 Room Air
[2024-09-27 15:09] VITALS: BP 138/82; PULSE 71; RESP 16; TEMP 97.5; O2SAT 96
== END 2024-09-27 15:19 | DRG 427 ==
LOC: ASU 09:09 → 3E 14:04